=== PATIENT | male | born 1930 | race Caucasian/White ===

== ENCOUNTER 2016-12-10 11:44 | Observation (INO) | payer MEDICARE ==
[~2016-12-10] VITALS: Ht 182.9 cm; Wt 90.0 kg
[2016-12-10] VITALS (8 sets, daily range): BP systolic 161–247; BP diastolic 70–112; PULSE 81–91; RESP 18; TEMP 98–98.1; O2SAT 90–96
[~2016-12-10 11:44] MED LIST: ADAL60TA9 PO; ASPI81 PO; ATOR40TA49 PO; GABA300C3 PO; LISI-366 PO; SINE25100 PO; VITA200017 PO; WARF2.5T40 PO; WARF2TAB PO; Z.0.OXYGENDME NC
--- NOTE | 2016-12-10 12:16 | PD ---
HPI Chief Complaint: Respiratory Distress Time Seen by Provider: 12:00 Travel History International Travel<30 days: No Contact w/Intl Traveler<30days: No Traveled to known affect area: No History of Present Illness HPI 56-year-old male that presents to the ED for evaluation of shortness of breath with exertion as well as difficulty swallowing and chest pressure comes and goes. Patient has a chronic history of Parkinson's disease, previous PE, AAA repair as well as ACS. Per patient the symptoms especially with shortness of breath have been ongoing for the past year but they've been worsening for the past 2 months. Per patient even just walking to the bathroom causes him severe exertion. Per patient is also noted that he's been having some difficulty swallowing even his pills. Per patient he is able to do so but he feels like they get stuck. This appears to be ongoing for about the same amount of time but progressively again getting worse. She states that he's also been having this chest pressure that gets better when he rubs his chest. Per patient he comes and goes and is not constant. She is concerned that there is something else going on. He does have a known history of smoking. He follows with Dr. arizmendi for cardiology and he states that he did see his physician about 6 months ago but at the time the symptoms weren't as severe as they are now. Patient tells me that he used to be on oxygen when he had his pulmonary embolism 3 years ago. He takes no blood thinners. He states that the oxygen was weaned off from him in a couple of months afterwards. He states that he's been checking his O2 at home and his O2 is in the 80s unless he forces himself to breathe and take deep breaths. He denies any recent travel or injury. He denies any chest pain at this time. He does have some difficulty speaking secondary to shortness of breath. PFSH Past Medical History AAA: Yes (2011) Arthritis: No Asthma: No Autoimmune Disease: Yes (childhood) Anxiety: Yes (ONLY RECENTLY SITUATIONAL TENSION) Depression: No Heart Rhythm Problems: No Cancer: No Cardiac Catheterization: Yes (2 STENTS 2005) Cardiovascular Problems: Yes High Cholesterol: Yes Chest Pain: No Congestive Heart Failure: Yes COPD: No Cerebrovascular Accident: No Diabetes: No Diminished Hearing: No Endocrine: No GERD: No Glaucoma: No Genitourinary: No Headaches: No Hepatitis: No Hiatal Hernia: No Hypertension: Yes Immune Disorder: No Implanted Vascular Access Dvce: Yes Kidney Stones: No Musculoskeletal: No Neurologic: Yes (SPINAL STENOSIS) Parkinson's Disease: Yes (PARKINSON SYMPTOMS) Psychiatric: No Reproductive: Yes (ED) Respiratory: No Immunizations Current: No Myocardial Infarction: No Renal Failure: No Seizures: No Sleep Apnea: No Thyroid Disease: No Ulcer: No Past Surgical History Abdominal Aneurysm Repair: Yes (2010) AICD: No Appendectomy: Yes Body Medical Devices: BILAT EYE LENS IMPLANTS Cardiac Surgery: Yes (cabg X 2 ) Coronary Artery Bypass Graft: Yes (X2 VESSELS) Coronary Stent: Yes Eye Surgery: Yes (BILATERAL CATARACTS) Pacemaker: No Other Surgery: Yes (AAA IN 2011) Social History Alcohol Use: Yes (GLASS OF WINE PER DAY) Tobacco Use: Yes (CIGAR/DAY) Substance Use: No Allergies-Medications (Allergen,Severity, Reaction): Coded Allergies: clopidogrel (Unverified Allergy, Severe, HIVES,SWELLING THROAT, 12/10/16) penicillin G (Unverified Allergy, Intermediate, SOB/HIVES/ THROAT SWELLING , 12/10/16) pyridoxine (Unverified Allergy, Mild, ITCHING AND HIVES, 12/10/16) Uncoded Allergies: LEONARD CHERRIES (Allergy, Intermediate, SOB/HIVES, 10/05/10) Reported Meds & Prescriptions Reported Meds & Active Scripts Active Review of Systems Except as stated in HPI: all other systems reviewed are Neg Physical Exam Narrative GENERAL: SKIN: Warm and dry. HEAD: Atraumatic. Normocephalic. EYES: Pupils equal and round. No scleral icterus. No injection or drainage. ENT: No nasal bleeding or discharge. Mucous membranes pink and moist. Tongue is midline. No uvula deviation. Throat itself is clear. NECK: Trachea midline. No JVD. CARDIOVASCULAR: Regular rate and rhythm. No murmurs, S3, S4. RESPIRATORY: No accessory muscle use. Clear to auscultation. Breath sounds equal bilaterally. GASTROINTESTINAL: Abdomen soft, non-tender, nondistended. Hepatic and splenic margins not palpable. MUSCULOSKELETAL: Extremities without clubbing, cyanosis, or edema. No obvious deformities. Full range of motion of the upper and lower extremities bilaterally. 2+ pulses bilaterally. NEUROLOGICAL: Awake and alert and oriented x 4. No obvious cranial nerve deficits. Motor grossly within normal limits. Five out of 5 muscle strength in the arms and legs. Normal speech. PSYCHIATRIC: Appropriate mood and affect; insight and judgment normal. Data Data Last Documented VS Vital Signs Date Time Temp Pulse Resp B/P (MAP) Pulse Ox O2 Delivery O2 Flow Rate FiO2 12/10/16 12:20 18 95 Nasal Cannula 2.00 12/10/16 12:16 70 12/10/16 11:52 98.1 200/110 (140) Orders Orders Electrocardiogram (12/10/16 12:00) Complete Blood Count With Diff (12/10/16 12:00) Basic Metabolic Panel (Bmp) (12/10/16 12:00) Ckmb (Isoenzyme) Profile (12/10/16 12:00) Troponin I (12/10/16 12:00) B-Type Natriuretic Peptide (12/10/16 12:00) Prothrombin Time / Inr (Pt) (12/10/16 12:00) Act Partial Throm Time (Ptt) (12/10/16 12:00) Magnesium (Mg) (12/10/16 12:00) Thyroid Stimulating Hormone (12/10/16 12:00) Chest, Single Ap (12/10/16 12:00) Iv Access Insert/Monitor (12/10/16 12:00) Ecg Monitoring (12/10/16 12:00) Oximetry (12/10/16 12:00) Ct Pulmonary Angiogram (12/10/16 ) Iohexol 350 Inj (Omnipaque 350 Inj) (12/10/16 13:58) Methylprednisolone So Succ Inj (Solumedr (12/10/16 14:45) Albuterol Neb (Albuterol Neb) (12/10/16 14:45) Admit Order (Ed Use Only) (12/10/16 14:51) Labs Laboratory Tests Test 12/10/16 12:20 White Blood Count 11.6 TH/MM3 Red Blood Count 6.22 MIL/MM3 Hemoglobin 16.5 GM/DL Hematocrit 52.0 % Mean Corpuscular Volume 83.7 FL Mean Corpuscular Hemoglobin 26.6 PG Mean Corpuscular Hemoglobin Concent 31.8 % Red Cell Distribution Width 15.3 % Platelet Count 220 TH/MM3 Mean Platelet Volume 8.1 FL Neutrophils (%) (Auto) 76.1 % Lymphocytes (%) (Auto) 14.9 % Monocytes (%) (Auto) 7.5 % Eosinophils (%) (Auto) 0.8 % Basophils (%) (Auto) 0.7 % Neutrophils # (Auto) 8.9 TH/MM3 Lymphocytes # (Auto) 1.7 TH/MM3 Monocytes # (Auto) 0.9 TH/MM3 Eosinophils # (Auto) 0.1 TH/MM3 Basophils # (Auto) 0.1 TH/MM3 CBC Comment DIFF FINAL Differential Comment Prothrombin Time 11.5 SEC Prothromb Time International Ratio 1.0 RATIO Activated Partial Thromboplast Time 29.2 SEC Blood Urea Nitrogen 16 MG/DL Creatinine 0.93 MG/DL Random Glucose 82 MG/DL Calcium Level 9.2 MG/DL Magnesium Level 2.2 MG/DL Sodium Level 143 MEQ/L Potassium Level 4.0 MEQ/L Chloride Level 106 MEQ/L Carbon Dioxide Level 27.5 MEQ/L Anion Gap 10 MEQ/L Estimat Glomerular Filtration Rate 77 ML/MIN Total Creatine Kinase 58 U/L Troponin I 0.02 NG/ML B-Type Natriuretic Peptide 136 PG/ML Thyroid Stimulating Hormone 3rd Gen 0.794 uIU/ML MDM Medical Decision Making Medical Screen Exam Complete: Yes Emergency Medical Condition: Yes Medical Record Reviewed: Yes Interpretation(s) Last Impressions Chest X-Ray 12/10/16 1200 Signed Impressions: Service Date/Time: Saturday, December 10, 2016 12:20 - CONCLUSION: Pulmonary venous congestion. Watson Farias MD CT Angiography 12/10/16 0000 Signed Impressions: Service Date/Time: Saturday, December 10, 2016 13:46 - CONCLUSION: 1. No evidence of pulmonary embolism. 2. 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 No significant changes. Watson Farias MD CBC & BMP Diagram 12/10/16 12:20 Calcium Level 9.2, Magnesium Level 2.2 troponin and CKMB negative EKG shows sinus rhythm with no sign of acute ischemia or arrhythmia. Read by me and attending. Differential Diagnosis Shortness of breath versus pulmonary embolism versus coronary artery disease versus arrhythmia versus hypoxia versus cancer Narrative Course 86-year-old male that presents to the ED for evaluation of shortness of breath with exertion. Patient was properly examined and was found to have signs and symptoms of unclear etiology. Patient appears to have chronic symptoms that appear to be worsening. Patient does have multiple comorbidities for multiple severe illness. Recommendation at this time is for labs and imaging. Patient has a history of PEs and takes no blood thinners and aspirin. We'll do CT pulmonary diagram because of patient's hypoxia. Patient without oxygen sats in the 88/89 but goes lower if he ambulates. With oxygen his sats in the early 90s. Labs and imaging showed no sign of acute disease other than COPD findings on the CT pulmonary and urine. Patient is not aware he has COPD. I had my attending Dr. You evaluated the patient who recommended we treat patient with 2 nebs as well as steroids. Patient also complains of some trouble swallowing and she is concerned that patient could be having some aspiration pneumonitis causing some of the symptoms. She recommends the patient be admitted for further evaluation as patient is hypoxic without oxygen. [facility] doctor was contacted. Dr Fields agrees to obs admit. Diagnosis Primary Impression: Hypoxia Additional Impressions: COPD (chronic obstructive pulmonary disease) Qualified Codes: J44.9 - Chronic obstructive pulmonary disease, unspecified Dysphagia Qualified Codes: R13.10 - Dysphagia, unspecified Chest pain in adult Admitting Information Admitting Physician Requests: Delgado Marroquin Dec 10, 2016 12:16
[2016-12-10 12:33] LABS: AUTOMATED NEUTROPHIL # 8.9 TH/MM3 (1.8-7.7); BASOPHIL # 0.1 TH/MM3 (0-0.2); BASOPHIL % 0.7 % (0.0-2.0); EOSINOPHIL # 0.1 TH/MM3 (0-0.4); EOSINOPHIL % 0.8 % (0.0-4.0); HEMO FLAGS DIFF FINAL; LYMPH % 14.9 % (9.0-44.0); LYMPHOCYTE # 1.7 TH/MM3 (1.0-4.8); MEAN CELL VOLUME 83.7 FL (80.0-100.0); MEAN CORPUSCULAR HEMOGLOBIN 26.6 PG (27.0-34.0); MEAN CORPUSCULAR HGB CONC 31.8 % (32.0-36.0); MONO % 7.5 % (0.0-8.0); NEUT % 76.1 % (16.0-70.0); PLATELET COUNT 220 TH/MM3 (150-450); RED BLOOD COUNT 6.22 MIL/MM3 (4.50-5.90); RED CELL DISTRIBUTION WIDTH 15.3 % (11.6-17.2); WHITE BLOOD COUNT 11.6 TH/MM3 (4.0-11.0)
--- NOTE | 2016-12-10 12:33 | RADRPT ---
EXAM DATE/TIME: 12/10/2016 12:20 [facility] COMPARISON: CHEST SINGLE AP, October 03, 2013, 8:20. INDICATIONS : Shortness of breath. MEDICAL HISTORY : Congestive heart failure. Hypertension SURGICAL HISTORY : CABG. Appendectomy. CABG. ENCOUNTER: Initial ACUITY: 3 days PAIN SCORE: 0/10 LOCATION: Bilateral chest FINDINGS: A single view of the chest demonstrates the lungs to be symmetrically aerated without evidence of mas s, infiltrate or effusion. Some prominence of the pulmonary vasculature suggestive of pulmonary venou s congestion. The cardiomediastinal contours are stable compared to the prior study. There is evidenc e of previous cardiothoracic surgery.. Osseous structures are intact and stable. CONCLUSION: Pulmonary venous congestion. Watson Farias MD on December 10, 2016 at 12:31 Board Certified Radiologist. This report was verified electronically.
[2016-12-10 12:41] LABS: APTT (PATIENT) 29.2 SEC (24.3-30.1); PROTHROMBIN TIME - PATIENT 11.5 SEC (9.8-11.6)
[2016-12-10 12:52] LABS: BICARBONATE 27.5 MEQ/L (21.0-32.0); MAGNESIUM 2.2 MG/DL (1.5-2.5)
[2016-12-10] MEDS ORDERED: IOHEXOL 350 MG/ML 10 ML VIAL (for RAD DIAG) IVCONTRAST ONE (13:58)
--- NOTE | 2016-12-10 14:09 | RADRPT ---
EXAM DATE/TIME: 12/10/2016 13:46 [facility] COMPARISON: CT PULMONARY ANGIOGRAM, September 29, 2013, 16:17. INDICATIONS : Embolism,Shortness of breath,chest pain, fatigue. IV CONTRAST: 70 cc Omnipaque 350 (iohexol) IV RADIATION DOSE: 12.69 CTDIvol (mGy) MEDICAL HISTORY : Cardiovascular disease. Parkinsons. Congestive heart failure.Hypertension. Auto immune. SURGICAL HISTORY : Appendectomy. AAA ENCOUNTER: Initial ACUITY: 1 yr PAIN SCALE: 6/10 LOCATION: chest TECHNIQUE: Volumetric scanning of the chest was performed using a pulmonary embolism protocol MIP images were re constructed. Using automated exposure control and adjustment of the mA and/or kV according to patien t size, radiation dose was kept as low as reasonably achievable to obtain optimal diagnostic quality images. DICOM format image data is available electronically for review and comparison. Follow-up recommendations for detected pulmonary nodules are based at a minimum on nodule size and pa tient risk factors according to Fleischner Society Guidelines. FINDINGS: PULMONARY ARTERIES: No filling defects are seen in the pulmonary arteries through the segmental level. LUNGS: There is no consolidation or pneumothorax . No concerning pulmonary nodule is visualized. There is c entral lobar emphysema and chronic bilateral interstitial lung disease. These findings are not signif icantly changed compared to the prior exam. No acute pulmonary infiltrates. PLEURAE: There is no pleural thickening or pleural effusion. MEDIASTINUM: There is good visualization of the great vessels of the middle mediastinum. No evidence of mediastin al or hilar adenopathy/mass. MUSCULOSKELETAL: Within normal limits for patient age. MISCELLANEOUS: The visualized upper abdominal organs demonstrate no acute abnormality. CONCLUSION: 1. No evidence of pulmonary embolism. 2. 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 No significant changes. Watson Farias MD on December 10, 2016 at 14:05 Board Certified Radiologist. This report was verified electronically.
[2016-12-10] MEDS: RESP: ALBUTEROL 2.5 MG/3 ML NEB (SCH) INH (14:39)
[2016-12-10] MEDS ORDERED: methylPREDNISolone SOD SUCC 125 MG/2 ML VIAL IVP ONE (14:45)
[2016-12-10] MEDS ORDERED: ATOR40TA16 PO (15:41)
[2016-12-10] MEDS ORDERED: GABA300C5 PO (15:41)
[2016-12-10] MEDS ORDERED: ASPI81CH37 CHEW (15:41)
[2016-12-10] MEDS ORDERED: NIFE30TA61 PO (15:41)
[2016-12-10] MEDS ORDERED: LISI-515 PO (15:41)
[2016-12-10] MEDS ORDERED: VITA2000 PO (15:41)
[2016-12-10] MEDS ORDERED: SINE25TA PO (15:41)
[2016-12-10] MEDS ORDERED: NIFEdipine 10 MG CAP PO ONE (16:00)
[2016-12-10] MEDS ORDERED: LISINOPRIL 20 MG TAB PO ONE (16:00)
--- NOTE | 2016-12-10 16:12 | HHI.HP ---
HPI [facility] Primary Care Physician Unknown Admission Diagnosis COPD exacerbation, dysphagia Chief Complaint: sob/difficulty swallowing Travel History International Travel<30 Days: No Contact w/Intl Traveler <30 Da: No Traveled to Known Affected Are: No History of Present Illness Pt is 86 yo with copd/ILD, hx AAA repair, hx PE, cad who presents with progressive sob and dysphagia. Pt says he has been getting more sob with exertion for at least a year. Says he is on no maintenance inhalers for copd. Now getting really bad so he came here. Also more trouble with liquids getting stuck in his throat over past 2 months. BP significantly elevated in ED. Pt getting rx for copd. No PE on CTA. Review of Systems Other sob dysphagia Past Family Social History Past Medical History CAD. CABG X 2 1994 STENT X 2 [facility] 2012...1 OF 2 GRAFTS PATENT EMPHESEMA BILATERAL PE'S IN 2013 SPINAL STENOSIS. PARKINSONS. APPENDICITIS S/P APPE basal cell left face s/p bx hx AAA s/p repair HTN Reported Medications Vitamin D3 (Cholecalciferol) 2,000 Unit Cap 2,000 Units PO DAILY Aspirin Low Dose (Aspirin) 81 Mg Chew 81 Mg CHEW DAILY Gabapentin 300 Mg Cap 300 Mg PO TID Sinemet (Carbidopa-Levodopa) 25-100 Mg Tab 1 Tab PO QID Nifedipine ER 24 HR (Nifedipine) 30 Mg Tab 30 Mg PO DAILY Atorvastatin (Atorvastatin Calcium) 40 Mg Tab 40 Mg PO HS Lisinopril 20 Mg Tab 20 Mg PO BID Allergies: Coded Allergies: clopidogrel (Unverified Allergy, Severe, HIVES,SWELLING THROAT, 12/10/16) penicillin G (Unverified Allergy, Intermediate, SOB/HIVES/ THROAT SWELLING , 12/10/16) pyridoxine (Unverified Allergy, Mild, ITCHING AND HIVES, 12/10/16) Uncoded Allergies: LEONARD CHERRIES (Allergy, Intermediate, SOB/HIVES, 10/05/10) Family History NC Social History QUIT TOB 1978 AFTER 1PPD X 20YRS OCC ETOH. WINE Physical Exam Vital Signs NAD SLOW MENTATION HEART IRREG LUNG FEW BASILAR CRACKLES/WHEEZE ABD S/NT EXT NO EDEMA Vital Signs Date Time Temp Pulse Resp B/P (MAP) Pulse Ox O2 Delivery O2 Flow Rate FiO2 12/10/16 15:59 87 18 247/112 (157) 95 Nasal Cannula 2.00 12/10/16 12:20 18 95 Nasal Cannula 2.00 12/10/16 12:16 70 18 92 Room Air 12/10/16 11:52 98.1 86 18 200/110 (140) 90 Laboratory Laboratory Tests Test 12/10/16 12:20 White Blood Count 11.6 Red Blood Count 6.22 Hemoglobin 16.5 Hematocrit 52.0 Mean Corpuscular Volume 83.7 Mean Corpuscular Hemoglobin 26.6 Mean Corpuscular Hemoglobin Concent 31.8 Red Cell Distribution Width 15.3 Platelet Count 220 Mean Platelet Volume 8.1 Neutrophils (%) (Auto) 76.1 Lymphocytes (%) (Auto) 14.9 Monocytes (%) (Auto) 7.5 Eosinophils (%) (Auto) 0.8 Basophils (%) (Auto) 0.7 Neutrophils # (Auto) 8.9 Lymphocytes # (Auto) 1.7 Monocytes # (Auto) 0.9 Eosinophils # (Auto) 0.1 Basophils # (Auto) 0.1 CBC Comment DIFF FINAL Differential Comment Prothrombin Time 11.5 Prothromb Time International Ratio 1.0 Activated Partial Thromboplast Time 29.2 Blood Urea Nitrogen 16 Creatinine 0.93 Random Glucose 82 Calcium Level 9.2 Magnesium Level 2.2 Sodium Level 143 Potassium Level 4.0 Chloride Level 106 Carbon Dioxide Level 27.5 Anion Gap 10 Estimat Glomerular Filtration Rate 77 Total Creatine Kinase 58 Troponin I 0.02 B-Type Natriuretic Peptide 136 Thyroid Stimulating Hormone 3rd Gen 0.794 Result Diagram: 12/10/16 1220 12/10/16 1220 Caprini VTE Risk Assessment Caprini VTE Risk Assessment: Mod/High Risk (score >= 2) Caprini Risk Assessment Model Point Value = 1 Point Value = 2 Point Value = 3 Point Value = 5 Age 41-60 Minor surgery BMI > 25 kg/m2 Swollen legs Varicose veins or History of unexplained or recurrent spontaneous Oral contraceptives or hormone replacement Sepsis (< 1 month) Serious lung disease, including pneumonia (< 1 month) Abnormal pulmonary function Acute myocardial infarction Congestive heart failure (< 1 month) History of inflammatory bowel disease Medical patient at bed rest Age 61-74 Arthroscopic surgery Major open surgery (> 45 min) Laparoscopic surgery (> 45 min) Malignancy Confined to bed (> 72 hours) Immobilizing plaster cast Central venous access Age >= 75 History of VTE Family history of VTE Factor V Leiden Prothrombin [id number] Lupus anticoagulant Anticardiolipin antibodies Elevated serum homocysteine Heparin-induced thrombocytopenia Other congenital or acquired thrombophilia Stroke (< 1 month) Elective arthroplasty Hip, pelvis, or leg fracture Acute spinal cord injury (< 1 month) Prophylaxis Regimen Total Risk Factor Score Risk Level Prophylaxis Regimen 0-1 Low Early ambulation 2 Moderate Order ONE of the following: *Sequential Compression Device (SCD) *Heparin 5000 units SQ BID 3-4 Higher Order ONE of the following medications: *Heparin 5000 units SQ TID *Enoxaparin/Lovenox 40 mg SQ daily (WT < 150 kg, CrCl > 30 mL/min) *Enoxaparin/Lovenox 30 mg SQ daily (WT < 150 kg, CrCl > 10-29 mL/min) *Enoxaparin/Lovenox 30 mg SQ BID (WT < 150 kg, CrCl > 30 mL/min) AND/OR *Sequential Compression Device (SCD) 5 or more Highest Order ONE of the following medications: *Heparin 5000 units SQ TID (Preferred with Epidurals) *Enoxaparin/Lovenox 40 mg SQ daily (WT < 150 kg, CrCl > 30 mL/min) *Enoxaparin/Lovenox 30 mg SQ daily (WT < 150 kg, CrCl > 10-29 mL/min) *Enoxaparin/Lovenox 30 mg SQ BID (WT < 150 kg, CrCl > 30 mL/min) AND *Sequential Compression Device (SCD) Assessment and Plan Problem List: (1) COPD (chronic obstructive pulmonary disease) ICD Codes: J44.9 - Chronic obstructive pulmonary disease, unspecified Status: Acute Plan: Pt is 86 yo with copd/ILD, cad, hx kristi PE's Presents with progressive sob with exertion and c/o dysphagia Admit for copd exacerbation. r/o esophageal dysmotility/obstruction No PE on CTA today. just emphesema/ILD.stable. Pt was hypoxic on admission today cont nebs schecduled and solumedrol will need maintenance inhalers on d/c and will d/o walk test for home o2 barium swallow. speech therapy eval. dvt prophylaxis PT eval cont home meds for other medical conditions. bp elevated. home meds plus prn control. telemetry. (2) Dysphagia ICD Codes: R13.10 - Dysphagia, unspecified Status: Acute Plan: ABOVE (3) Hypoxia ICD Codes: R09.02 - Hypoxia Status: Acute Plan: ABOVE (4) CAD (coronary artery disease) ICD Codes: I25.10 - CAD (coronary artery disease) Status: Chronic (5) History of atrial fibrillation ICD Codes: Z86.79 - History of atrial fibrillation Status: Chronic (6) Spinal stenosis ICD Codes: M48.00 - Spinal stenosis Status: Chronic (7) Pulmonary emboli ICD Codes: I26.99 - Pulmonary emboli Status: Resolved Problem Qualifiers (1) COPD (chronic obstructive pulmonary disease): Qualified Codes: J44.9 - Chronic obstructive pulmonary disease, unspecified (2) Dysphagia: Qualified Codes: R13.10 - Dysphagia, unspecified Raymundo Paniagua MD Dec 10, 2016 16:12
--- NOTE | 2016-12-10 16:30 | PD ---
Data Data Last Documented VS Vital Signs Date Time Temp Pulse Resp B/P (MAP) Pulse Ox O2 Delivery O2 Flow Rate FiO2 12/10/16 12:20 18 95 Nasal Cannula 2.00 12/10/16 12:16 70 12/10/16 11:52 98.1 200/110 (140) Orders Orders Electrocardiogram (12/10/16 12:00) Complete Blood Count With Diff (12/10/16 12:00) Basic Metabolic Panel (Bmp) (12/10/16 12:00) Ckmb (Isoenzyme) Profile (12/10/16 12:00) Troponin I (12/10/16 12:00) B-Type Natriuretic Peptide (12/10/16 12:00) Prothrombin Time / Inr (Pt) (12/10/16 12:00) Act Partial Throm Time (Ptt) (12/10/16 12:00) Magnesium (Mg) (12/10/16 12:00) Thyroid Stimulating Hormone (12/10/16 12:00) Chest, Single Ap (12/10/16 12:00) Iv Access Insert/Monitor (12/10/16 12:00) Ecg Monitoring (12/10/16 12:00) Oximetry (12/10/16 12:00) Ct Pulmonary Angiogram (12/10/16 ) Iohexol 350 Inj (Omnipaque 350 Inj) (12/10/16 13:58) Methylprednisolone So Succ Inj (Solumedr (12/10/16 14:45) Albuterol Neb (Albuterol Neb) (12/10/16 14:45) Admit Order (Ed Use Only) (12/10/16 14:51) Labs Laboratory Tests Test 12/10/16 12:20 White Blood Count 11.6 TH/MM3 Red Blood Count 6.22 MIL/MM3 Hemoglobin 16.5 GM/DL Hematocrit 52.0 % Mean Corpuscular Volume 83.7 FL Mean Corpuscular Hemoglobin 26.6 PG Mean Corpuscular Hemoglobin Concent 31.8 % Red Cell Distribution Width 15.3 % Platelet Count 220 TH/MM3 Mean Platelet Volume 8.1 FL Neutrophils (%) (Auto) 76.1 % Lymphocytes (%) (Auto) 14.9 % Monocytes (%) (Auto) 7.5 % Eosinophils (%) (Auto) 0.8 % Basophils (%) (Auto) 0.7 % Neutrophils # (Auto) 8.9 TH/MM3 Lymphocytes # (Auto) 1.7 TH/MM3 Monocytes # (Auto) 0.9 TH/MM3 Eosinophils # (Auto) 0.1 TH/MM3 Basophils # (Auto) 0.1 TH/MM3 CBC Comment DIFF FINAL Differential Comment Prothrombin Time 11.5 SEC Prothromb Time International Ratio 1.0 RATIO Activated Partial Thromboplast Time 29.2 SEC Blood Urea Nitrogen 16 MG/DL Creatinine 0.93 MG/DL Random Glucose 82 MG/DL Calcium Level 9.2 MG/DL Magnesium Level 2.2 MG/DL Sodium Level 143 MEQ/L Potassium Level 4.0 MEQ/L Chloride Level 106 MEQ/L Carbon Dioxide Level 27.5 MEQ/L Anion Gap 10 MEQ/L Estimat Glomerular Filtration Rate 77 ML/MIN Total Creatine Kinase 58 U/L Troponin I 0.02 NG/ML B-Type Natriuretic Peptide 136 PG/ML Thyroid Stimulating Hormone 3rd Gen 0.794 uIU/ML MDM Supervised Visit with SHERRIE: Yes Narrative Course The history, exam, and medical decision-making in the associated midlevel provider note were completed with my assistance. I reviewed and agree with the findings presented. I attest that I had a [id number] encounter with the patient on the same day, and personally performed and documented my assessment and findings in the medical record. *My assessment and Findings: This is an 86-year-old male who presents to the emergency department with shortness of breath and low oxygen saturation. History of Parkinson's disease and a [id number] smoking history. Labs were obtained which were reassuring. He has an indeterminate BNP. Chest x-ray demonstrates some possible pulmonary edema. CT of the chest demonstrates COPD. On exam he has some Rales in the bases. He appears very dry side hesitant to diurese him. We will empirically given some bronchodilators and steroids but when talking the family they say that he's been having trouble swallowing and I suspect he may some component of aspiration contribute to his symptoms. He'll be admitted as he is hypoxic at 85% with ambulation. Diagnosis Primary Impression: Hypoxia Additional Impressions: COPD (chronic obstructive pulmonary disease) Qualified Codes: J44.9 - Chronic obstructive pulmonary disease, unspecified Dysphagia Qualified Codes: R13.10 - Dysphagia, unspecified Chest pain [facility] adult [facility] ChildrenJaclyn blake MD Dec 10, 2016 16:30
[2016-12-10] MEDS: methylPREDNISolone SOD SUCC 125 MG/2 ML VIAL IV PUSH SCH (17:48)
[2016-12-10] MEDS: GABAPENTIN 300 MG CAP PO SCH (17:49)
[2016-12-10] MEDS: RESP: ALBUTEROL 2.5 MG/IPRATROPIUM 0.5 MG NEB (SCH) NEB (21:34)
[2016-12-10] MEDS: LISINOPRIL 20 MG TAB PO SCH (22:46)
[2016-12-10] MEDS: CARBIDOPA/LEVODOPA 25 MG/100 MG TAB PO SCH (22:46)
[2016-12-10] MEDS: ATORVASTATIN 40 MG TAB PO SCH (22:46)
[2016-12-11] VITALS (12 sets, daily range): BP systolic 118–209; BP diastolic 59–95; PULSE 70–89; RESP 17–20; TEMP 97.8–98.5; O2SAT 89–96
[2016-12-11] MEDS: methylPREDNISolone SOD SUCC 125 MG/2 ML VIAL IV PUSH SCH ×4 (00:54→17:56)
[2016-12-11] MEDS: CARBIDOPA/LEVODOPA 25 MG/100 MG TAB PO SCH ×3 (05:27→21:33)
[2016-12-11] MEDS: RESP: ALBUTEROL 2.5 MG/IPRATROPIUM 0.5 MG NEB (SCH) NEB ×4 (07:42→20:33)
[2016-12-11] MEDS: ENALAPRILAT 1.25 MG/ML VIAL IV PUSH PRN ×2 (07:49→14:51)
[2016-12-11] MEDS ORDERED: NIFEdipine 30 MG SUSTAINED RELEASE TAB PO SCH (09:00)
[2016-12-11] MEDS: ASPIRIN 81 MG CHEW TAB CHEW SCH (09:04)
[2016-12-11] MEDS: CHOLECALCIFEROL (VIT D3) 1000 UNIT TAB PO SCH (09:04)
[2016-12-11] MEDS: GABAPENTIN 300 MG CAP PO SCH ×3 (09:04→17:55)
[2016-12-11] MEDS: LISINOPRIL 20 MG TAB PO SCH ×2 (09:06→21:00)
--- NOTE | 2016-12-11 09:31 | HHI.PR ---
Subjective Remarks unable to do barium swallow. says he couldn't stand and he couldn't lye on the table. Objective Vitals heart reg lung few wheezes abd s/nt ext no edema Vital Signs Date Time Temp Pulse Resp B/P (MAP) Pulse Ox O2 Delivery O2 Flow Rate FiO2 12/11/16 08:52 206/88 (127) 12/11/16 07:45 94 Nasal Cannula 2.00 12/11/16 07:26 97.8 79 18 209/95 (133) 95 12/11/16 03:27 97.9 70 18 157/78 (104) 90 12/11/16 00:09 97.9 71 18 154/72 (99) 90 12/10/16 21:36 92 Nasal Cannula 3.00 12/10/16 20:00 89 12/10/16 19:41 98.0 82 18 161/70 (100) 95 12/10/16 17:57 12/10/16 17:04 91 18 173/80 (111) 96 Nasal Cannula 2.00 12/10/16 16:38 81 18 184/80 (114) 96 Nasal Cannula 2.00 12/10/16 15:59 87 18 247/112 (157) 95 Nasal Cannula 2.00 12/10/16 12:20 18 95 Nasal Cannula 2.00 12/10/16 12:16 70 18 92 Room Air 12/10/16 11:52 98.1 86 18 200/110 (140) 90 Result Diagram: 12/10/16 1220 12/10/16 1220 A/P Problem List: (1) COPD (chronic obstructive pulmonary disease) ICD Codes: J44.9 - Chronic obstructive pulmonary disease, unspecified Status: Acute Plan: Pt is 86 yo with copd/ILD, cad, hx kristi PE's Presents with progressive sob with exertion and c/o dysphagia Admit for copd exacerbation. r/o esophageal dysmotility/obstruction No PE on CTA . just emphesema/ILD.stable. Pt was hypoxic on admission today uncontrolled htn deconditioned cont nebs scheduled and solumedrol will need maintenance inhalers on d/c and will d/o walk test for home o2 unable to do barium swallow. speech therapy eval. dvt prophylaxis PT eval cont home meds for other medical conditions. bp elevated. titrate up the ccb today CM consult. will decide hhc/pt vs snf for tomorrow. (2) Dysphagia ICD Codes: R13.10 - Dysphagia, unspecified Status: Acute Plan: ABOVE (3) Hypoxia ICD Codes: R09.02 - Hypoxia Status: Acute Plan: ABOVE (4) CAD (coronary artery disease) ICD Codes: I25.10 - CAD (coronary artery disease) Status: Chronic (5) History of atrial fibrillation ICD Codes: Z86.79 - History of atrial fibrillation Status: Chronic (6) Spinal stenosis ICD Codes: M48.00 - Spinal stenosis Status: Chronic (7) Pulmonary emboli ICD Codes: I26.99 - Pulmonary emboli Status: Resolved Problem Qualifiers (1) COPD (chronic obstructive pulmonary disease): Qualified Codes: J44.9 - Chronic obstructive pulmonary disease, unspecified (2) Dysphagia: Qualified Codes: R13.10 - Dysphagia, unspecified Raymundo Paniagua MD Dec 11, 2016 09:31
[2016-12-11] MEDS ORDERED: cloNIDine HCL 0.1 MG TAB PO PRN (15:15)
[2016-12-11] MEDS ORDERED: ACETAMINOPHEN 325 MG TAB PO PRN (15:15)
--- NOTE | 2016-12-11 15:56 | EKG ---
Date Performed: 12/10/2016 Time Performed: 12:23:49 PTAGE: 86 years EKG: Sinus rhythm with PACs MODERATE VOLTAGE CRITERIA FOR LVH, CONSIDER NORMAL VARIANT ABNORMAL RHYTHM ECG Compared to PREVIOUS TRACING , previously seen ST and T-wave changes have improved. PREVIOUS TRACIN09/30/2013 01.33 DOCTOR: Sumanth Vieira Interpretating Date/Time 12/11/2016 15:54:42
[2016-12-11] MEDS: NIFEdipine 30 MG SUSTAINED RELEASE TAB PO SCH (21:00)
[2016-12-11] MEDS: ATORVASTATIN 40 MG TAB PO SCH (21:00)
[2016-12-12 00:06] VITALS: BP 102/56; PULSE 69; RESP 16; TEMP 98; O2SAT 90
[2016-12-12 03:22] VITALS: BP 111/55; PULSE 71; RESP 17; TEMP 97.9; O2SAT 90
[2016-12-12] MEDS: CARBIDOPA/LEVODOPA 25 MG/100 MG TAB PO SCH (06:00)
[2016-12-12] MEDS: methylPREDNISolone SOD SUCC 125 MG/2 ML VIAL IV PUSH SCH ×3 (06:08→12:00)
[2016-12-12 07:14] VITALS: BP 134/66; PULSE 80; RESP 20; TEMP 97.6; O2SAT 94
[2016-12-12] MEDS: RESP: ALBUTEROL 2.5 MG/IPRATROPIUM 0.5 MG NEB (SCH) NEB ×2 (07:47→11:37)
[2016-12-12 07:49] VITALS: O2SAT 92
[2016-12-12] MEDS: NIFEdipine 30 MG SUSTAINED RELEASE TAB PO SCH (08:34)
[2016-12-12] MEDS: GABAPENTIN 300 MG CAP PO SCH (08:34)
[2016-12-12] MEDS: CHOLECALCIFEROL (VIT D3) 1000 UNIT TAB PO SCH (08:35)
[2016-12-12] MEDS: LISINOPRIL 20 MG TAB PO SCH (08:36)
[2016-12-12] MEDS: ASPIRIN 81 MG CHEW TAB CHEW SCH (08:36)
--- NOTE | 2016-12-12 09:51 | HHI.PR ---
Subjective Remarks Pt reports that his breathing is better today He is down to 1L of supplemental O2 He reports having one loose BM this morning. He states that he has issues with this at home occasionally and takes Imodium when this happens Objective Vitals Vital Signs Date Time Temp Pulse Resp B/P (MAP) Pulse Ox O2 Delivery O2 Flow Rate FiO2 12/12/16 07:49 92 Nasal Cannula 2.00 12/12/16 07:14 97.6 80 20 134/66 (88) 94 12/12/16 03:22 97.9 71 17 111/55 (73) 90 12/12/16 00:06 98.0 69 16 102/56 (71) 90 12/11/16 20:30 92 Nasal Cannula 2.00 12/11/16 19:03 97.9 80 17 118/59 (78) 89 12/11/16 16:44 98.5 85 20 144/65 (91) 96 12/11/16 15:31 86 188/82 (117) 12/11/16 14:44 89 207/91 (129) 180/84 (116) 12/11/16 11:28 98.0 81 20 174/79 (110) 93 12/11/16 09:48 171/84 (113) Result Diagram: 12/10/16 1220 12/10/16 1220 Other Results Laboratory Tests Test 12/10/16 12:20 White Blood Count 11.6 TH/MM3 Red Blood Count 6.22 MIL/MM3 Hemoglobin 16.5 GM/DL Hematocrit 52.0 % Mean Corpuscular Volume 83.7 FL Mean Corpuscular Hemoglobin 26.6 PG Mean Corpuscular Hemoglobin Concent 31.8 % Red Cell Distribution Width 15.3 % Platelet Count 220 TH/MM3 Mean Platelet Volume 8.1 FL Neutrophils (%) (Auto) 76.1 % Lymphocytes (%) (Auto) 14.9 % Monocytes (%) (Auto) 7.5 % Eosinophils (%) (Auto) 0.8 % Basophils (%) (Auto) 0.7 % Neutrophils # (Auto) 8.9 TH/MM3 Lymphocytes # (Auto) 1.7 TH/MM3 Monocytes # (Auto) 0.9 TH/MM3 Eosinophils # (Auto) 0.1 TH/MM3 Basophils # (Auto) 0.1 TH/MM3 CBC Comment DIFF FINAL Differential Comment Prothrombin Time 11.5 SEC Prothromb Time International Ratio 1.0 RATIO Activated Partial Thromboplast Time 29.2 SEC Blood Urea Nitrogen 16 MG/DL Creatinine 0.93 MG/DL Random Glucose 82 MG/DL Calcium Level 9.2 MG/DL Magnesium Level 2.2 MG/DL Sodium Level 143 MEQ/L Potassium Level 4.0 MEQ/L Chloride Level 106 MEQ/L Carbon Dioxide Level 27.5 MEQ/L Anion Gap 10 MEQ/L Estimat Glomerular Filtration Rate 77 ML/MIN Total Creatine Kinase 58 U/L Troponin I 0.02 NG/ML B-Type Natriuretic Peptide 136 PG/ML Thyroid Stimulating Hormone 3rd Gen 0.794 uIU/ML Imaging Last Impressions Chest X-Ray 12/10/16 1200 Signed Impressions: Service Date/Time: Saturday, December 10, 2016 12:20 - CONCLUSION: Pulmonary venous congestion. Watson Farias MD CT Angiography 12/10/16 0000 Signed Impressions: Service Date/Time: Saturday, December 10, 2016 13:46 - CONCLUSION: 1. No evidence of pulmonary embolism. 2. 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 No significant changes. Watson Farias MD Objective Remarks General: NAD, AAOx3 Chest: CTA Cardiac: Regular Abd: +BS, soft ND/NT Ext: No edema A/P Problem List: (1) COPD (chronic obstructive pulmonary disease) ICD Codes: J44.9 - Chronic obstructive pulmonary disease, unspecified Status: Acute Plan: - Pt is 86 yo male with COPD/ILD, CAD, hx kristi PE's - He presented with progressive SOB with exertion and c/o dysphagia. Pt was noted to be hypoxic at admission. - He was admitted for COPD exacerbation and to r/o esophageal dysmotility/ obstruction - CTA (12/10) Negative for PE but noted emphysema/ILD, stable. - Pt with noted uncontrolled HTN at admission as well. - Pt is on Solu-medrol 60mg Q6H and scheduled Duonebs Q4H WA - Pt does not want to have a walk test in the hospital for home O2. He is down to 1L of O2 today. We will see if he can be weaned off the O2 today - PT has recommended HHC/PT upon discharge which will be arranged along with a home nebulizer. - Pt insists on going home today - Pt will need maintenance inhalers on d/c, we had planned to start Symbicort or Advair but I called [facility] pharmacy and both medications will cost him $80.00 so he declines these upon discharge and wants to followup with Dr. Peña regarding this. - We will have him continue Nebulizer treatments Q4H for the next 3 days, then can be used as needed - He is to complete a Prednisone Taper, 20mg BID x 3 days --> 20mg daily x 3 days --> 10mg daily x 3 days --> stop - He will need to followup with his PCP. Dr. Peña in the next week for re-evaluation. (2) HTN (hypertension), benign ICD Codes: I10 - Essential (primary) hypertension Status: Chronic Plan: - Pts BP was quite elevated and CCB was titrated up to 30mg BID - BP more stable today - Clonidine PRN (3) Dysphagia ICD Codes: R13.10 - Dysphagia, unspecified Status: Acute Plan: - Pt was unable to do the barium swallow but was seen by ST and recommended for regular diet with not s/s of aspiration - If dysphagia persists he may need GI evaluation for EGD as an outpt (4) Hypoxia ICD Codes: R09.02 - Hypoxia Status: Acute Plan: - As above (5) CAD (coronary artery disease) ICD Codes: I25.10 - CAD (coronary artery disease) Status: Chronic (6) History of atrial fibrillation ICD Codes: Z86.79 - History of atrial fibrillation Status: Chronic (7) Spinal stenosis ICD Codes: M48.00 - Spinal stenosis Status: Chronic (8) Pulmonary emboli ICD Codes: I26.99 - Pulmonary emboli Status: Resolved Assessment and Plan Patient examined. Assessment and plan formulated with Shannan Sal PA-C. I agree with the above. Problem Qualifiers (1) COPD (chronic obstructive pulmonary disease): Qualified Codes: J44.9 - Chronic obstructive pulmonary disease, unspecified (2) Dysphagia: Qualified Codes: R13.10 - Dysphagia, unspecified Shannan Sal Dec 12, 2016 09:51 [address] DO Dec 14, 2016 01:37
[2016-12-12] MEDS ORDERED: ALBU0.08 NEB (10:13)
[2016-12-12] MEDS ORDERED: SYMB160A INH (10:13)
[2016-12-12] MEDS ORDERED: IPRA0.02 NEB (10:13)
[2016-12-12] MEDS ORDERED: NIFE30TA61 PO (10:13)
[2016-12-12] MEDS ORDERED: PRED20 PO (10:13)
[2016-12-12] MEDS ORDERED: NEBULIZER/ADULT1 KIT (10:20)
--- NOTE | 2016-12-12 10:20 | HHI.FF ---
Face to Face Verification Diagnosis: (1) COPD (chronic obstructive pulmonary disease) (2) HTN (hypertension), benign (3) History of atrial fibrillation (4) CAD (coronary artery disease) (5) Hypoxia (6) Dysphagia Physical Therapy Order: Evaluate and Treat, Improve ambulation, Strength and gait training Home Health Nursing Order: Signs/symptoms of disease process Nursing assessment with vital signs I have seen patient Alfredo Khan on 12/12/16. My clinical findings support the need for the requested home health care services because: Patient has SOB Deconditioned w/ increased weakness I certify that my clinical findings support that this patient is homebound because: Hx COPD- exertion dyspnea/weakness Shannan Sal Dec 12, 2016 10:20
--- NOTE | 2016-12-12 10:26 | HHI.DCPOC ---
Discharge Care Plan Diagnosis: (1) COPD (chronic obstructive pulmonary disease) (2) Hypoxia (3) HTN (hypertension), benign (4) History of atrial fibrillation (5) CAD (coronary artery disease) (6) Dysphagia Goals to Promote Your Health NEW MEDICATIONS: - Albuterol neb/ipratropium Neb one vial of each liquid medicine to be put in the nebulizer and aerosolized medicine to be inhaled into the lungs every 4 hours while awake for the next three days, then can be used as needed for any shortness of breath or wheezing - Prednisone taper - Take 20mg twice daily x 3 days, then decrease to 20 mg once daily x 3 days, then decrease to 10mg once daily x 3 days, then stop CHANGED MEDICATIONS: - Nifedipine 30mg has been increased to twice daily - You are to followup with your PCP, Dr. Lindsey in 1 week, call for an appt. Directions to Meet Your Goals Take your medications as prescribed Follow your dietary instruction Follow activity as directed Keep your appointments as scheduled Take your immunizations and boosters as scheduled If your symptoms worsen call your PCP, if no PCP go to Urgent Care Center or Emergency Room Smoking is Dangerous to Your Health. Avoid second hand smoke Call the 24-hour hour crisis hotline for domestic abuse at Shannan Sal Dec 12, 2016 10:26 [place] DO Dec 14, 2016 01:38
[2016-12-12] MEDS ORDERED: LOPERAMIDE HCL 2 MG CAP PO ONE (11:00)
[2016-12-12] MEDS ORDERED: BUDESONIDE-FORMOTEROL 160/4.5 MCG INHALER INH SCH (12:00)
== END 2016-12-12 14:38 | disposition home or self-care (01) ==
LOC: NEPC 11:44 → NEDA 14:52 → NEPFCDU 18:53
PROVIDERS: ADMIT Hospitalist; ATTEND Hospitalist
DX: J44.1 Chronic obstructive pulmonary disease with (acute) exacerbation (principal); R09.02 Hypoxemia; I10 Essential (primary) hypertension; I25.10 Atherosclerotic heart disease of native coronary artery without angina pectoris; R13.10 Dysphagia, unspecified; I48.91 Unspecified atrial fibrillation; Z95.1 Presence of aortocoronary bypass graft; G20 Parkinson's disease; Z86.711 Personal history of pulmonary embolism; Z72.0 Tobacco use; Z99.81 Dependence on supplemental oxygen
CPT/HCPCS: 71010; 71275; 80048; 82550; 83735; 83880; 84443; 84484; 85025; 85610; 85730; 92526; 92610; 93005; 94640; 94664; 96374; 96375; 96376; 97162; 99285; G0378; G8987; G8988; G8996; G8997; G8998; J2930; J7613; Q9967

== ENCOUNTER 2017-04-30 22:12 | Inpatient (IN) | payer MEDICARE ==
[~2017-04-30] VITALS: Ht 175.3 cm; Wt 83.0 kg
[~2017-04-30 22:12] MED LIST changes: -ADAL60TA9 PO; +ALBU0.08 NEB; -ASPI81 PO; +ASPI81CH6 CHEW; +ATOR40TA16 PO; -ATOR40TA49 PO; -GABA300C3 PO; +GABA300C5 PO; +IPRA0.02 NEB; -LISI-366 PO; +LISI-515 PO; +NEBULIZER/ADULT1 KIT; +NIFE30TA61 PO; +PRED20 PO; -SINE25100 PO; +SINE25TA PO; +VITA2000 PO; -VITA200017 PO; -WARF2.5T40 PO; -WARF2TAB PO; -Z.0.OXYGENDME NC
[2017-04-30 22:15] VITALS: BP 183/94; PULSE 82; RESP 24; O2SAT 88
--- NOTE | 2017-04-30 22:35 | PD ---
HPI Chief Complaint: shortness of breath Time Seen by Provider: 22:17 Travel History International Travel<30 days: No Contact w/Intl Traveler<30days: No History of Present Illness HPI The patient is an 86 year old male who presents to the [facility] emergency department with a history of dyspnea on exertion that began 2 days ago. The patient reports that he has had an occasional productive sounding cough, however he has not been able to bring anything up. He reports that he does have a history of COPD. He reports that he has a history of coronary artery disease. He is not aware of any prior history of congestive heart failure. He is followed by Dr. arizmendi for his primary care. He is on a low-dose aspirin daily. He reports that he does have a history of bilateral pulmonary embolisms in 2013, however he is no longer on any blood thinners. Patient reports that he quit smoking in 1978, however he lives with a smoker. He denies having any chest pain. He reports that he has lightheaded sensation shortness of breath with exertion. He denies having any known fevers. He did have a home doctor, out to his house earlier today and he was diagnosed with pneumonia. He was given a perception for antibiotic, however he has not been able to fill the prescription yet. On review of systems otherwise, the patient denies having any neck pain, chest pain, abdominal pain, vomiting, diarrhea, urinary symptoms , or focal neurologic symptoms. The patient reports having generalized weakness and fatigue. The patient reports that his lower extremity edema is no worse than usual. He denies having any calf pain or erythema. [facility] Past Medical History Narrative Medical The patient's past medical history is significant for coronary artery disease status post coronary artery bypass grafting 2 vessels and 2 stents placed since then last in 2008, history of COPD, bilateral pulmonary embolisms, spinal stenosis, Parkinson's, skin cancer status post resection from the left side of his face, abdominal aortic aneurysm status post repair, hypertension, hyperlipidemia. AAA: Yes (2010) Arthritis: No Asthma: No Autoimmune Disease: Yes (childhood) Blood Disorders: No Anxiety: No Depression: No Heart Rhythm Problems: No Cancer: No Cardiac Catheterization: Yes (2 STENTS 2005) Cardiovascular Problems: Yes High Cholesterol: Yes Chest Pain: No Congestive Heart Failure: Yes COPD: No Cerebrovascular Accident: No Diabetes: No Diminished Hearing: No Endocrine: No GERD: No Glaucoma: No Genitourinary: No Headaches: No Hepatitis: No Hiatal Hernia: No Hypertension: Yes Immune Disorder: No Implanted Vascular Access Dvce: Yes Kidney Stones: No Musculoskeletal: No Neurologic: Yes (SPINAL STENOSIS) Parkinson's Disease: Yes (PARKINSON SYMPTOMS) Psychiatric: No Reproductive: Yes (ED) Respiratory: No Immunizations Current: No Myocardial Infarction: No Renal Failure: No Seizures: No Sleep Apnea: No Thyroid Disease: No Ulcer: No Past Surgical History Narrative Surgical The Patient surgical history with reviewed according to the nursing records Abdominal Aneurysm Repair: Yes (2010) AICD: No Appendectomy: Yes Body Medical Devices: BILAT EYE LENS IMPLANTS Cardiac Surgery: Yes (cabg X 2 ) Coronary Artery Bypass Graft: Yes (X2 VESSELS) Coronary Stent: Yes Eye Surgery: Yes (BILATERAL CATARACTS) Pacemaker: No Other Surgery: Yes (AAA IN 2010) Social History Alcohol Use: Yes (GLASS OF WINE PER DAY) Tobacco Use: Yes (CIGAR/DAY) Substance Use: No Allergies-Medications (Allergen,Severity, Reaction): Coded Allergies: clopidogrel (Verified Allergy, Severe, HIVES,SWELLING THROAT, 05/01/17) penicillin G (Verified Allergy, Intermediate, SOB/HIVES/ THROAT SWELLING, 05/01/17) pyridoxine (Verified Allergy, Mild, ITCHING AND HIVES, 05/01/17) Uncoded Allergies: LEONARD CHERRIES (Allergy, Intermediate, SOB/HIVES, 10/05/10) Reported Meds & Prescriptions Reported Meds & Active Scripts Active Ipratropium Neb (Ipratropium Bedrock) 0.5 Mg/2.5 Ml Amp 0.5 Mg NEB Q4HR NEB PRN Take every 4 hours with the albuterol while awake for the next three days, then can be used as needed Albuterol Neb (Albuterol Sulfate) 2.5 Mg/3 Ml Neb 2.5 Mg NEB Q4HR NEB Take every 4 hours while awake for the next three days, then can be used as needed Nifedipine ER 24 HR (Nifedipine) 30 Mg Tab 30 Mg PO BID Reported Advil Pm (Ibuprofen-Diphenhydramine) 200-38 Mg Tab 2 Tab PO HS PRN Vitamin D3 (Cholecalciferol) 2,000 Unit Cap 2,000 Units PO DAILY Aspirin Low Dose (Aspirin) 81 Mg Chew 81 Mg CHEW DAILY Gabapentin 300 Mg Cap 300 Mg PO TID Sinemet (Carbidopa-Levodopa) 25-100 Mg Tab 1 Tab PO Q8HR Atorvastatin (Atorvastatin Calcium) 40 Mg Tab 40 Mg PO HS Lisinopril 20 Mg Tab 20 Mg PO BID Review of Systems Except as stated in HPI: all other systems reviewed are Neg General / Constitutional: No: Fever Eyes: No: Visual changes HENT: Positive: Congestion, No: Headaches Cardiovascular: Positive: Dyspnea on exertion, Edema, No: Chest Pain or Discomfort Respiratory: Positive: Cough, Shortness of Breath Gastrointestinal: No: Abdominal Pain Genitourinary: No: Dysuria Musculoskeletal: No: Pain Skin: No Rash Neurologic: Positive: Weakness, No: Focal Abnormalities, Change in Mentation, Slurred Speech, Sensory Disturbance Psychiatric: No: Depression Endocrine: No: Polydipsia Hematologic/Lymphatic: No: Easy Bruising Physical Exam Narrative General: The patient is a well-developed well-nourished male with conversational dyspnea. Head and Neck exam: Head is normocephalic atraumatic. Eyes: EOMI, pupils are equal round and reactive to light. Nose: Midline septum with pink mucous membranes Mouth: Dentition unremarkable. Moist mucus membranes. Posterior oropharynx is not erythematous. No tonsillar hypertrophy. Uvula midline. Airway patent. Neck: No palpable lymphadenopathy. No nuchal rigidity. No thyromegaly. Cardiovascular: Regular rate and rhythm without murmurs, gallops, or rubs. Lungs: The patient is noted to have decreased breath sounds in bilateral bases. Crackles audible in the right lower lung base. No wheezes or rhonchi. The patient has some conversational dyspnea noted. No accessory muscle use noted. No paroxysmal abdominal breathing. No tripoding. Abdomen: Soft, without tenderness to palpation in all 4 quadrants of the abdomen. No guarding, rebound, or rigidity. Negative Wells's sign. Extremities: No clubbing or cyanosis. The patient has trace pedal edema bilateral lower extremities. 2+ pulses in all 4 extremities. Back: No costovertebral angle tenderness to palpation. Neurologic Exam: Grossly nonfocal. Skin Exam: No rash noted. Intact skin that is warm and dry. Data Data Last Documented VS Vital Signs Date Time Temp Pulse Resp B/P (MAP) Pulse Ox O2 Delivery O2 Flow Rate FiO2 05/01/17 00:30 78 20 166/88 (114) 95 Ventilator 6.00 04/30/17 23:40 97.8 Orders Orders Electrocardiogram (04/30/17 22:26) Complete Blood Count With Diff (04/30/17 22:) Comprehensive Metabolic Panel (04/30/17 22:) Creatine Kinase (Cpk) (04/30/17 22:) Ckmb (Isoenzyme) Profile (04/30/17 22:) Troponin I (04/30/17:) B-Type Natriuretic Peptide (04/30/17:) Prothrombin Time / Inr (Pt) (04/30/17:) Act Partial Throm Time (Ptt) (04/30/17 22:) Blood Culture (04/30/17:) C-Reactive Protein (Crp) (04/30/17:) Lipase (04/30/17:) Urinalysis - C+S If Indicated (04/30/17:) Westergren Sedimentation Rate (04/30/17:26) Magnesium (Mg) (04/30/17:) Influenzae A/B Antigen (04/30/17 22:26) Chest, Single Ap (04/30/17 22:26) Iv Access Insert/Monitor (04/30/17 22:) Ecg Monitoring (04/30/17:) Oximetry (04/30/17:) Lactic Acid Sepsis Protocol (04/30/17 22:26) Ct Pulmonary Angiogram (04/30/17 22:26) Iohexol 350 Inj (Omnipaque 350 Inj) (05/01/17 00:37) Nitroglycerin 2% Oint (Nitroglycerin 2% (05/01/17 01:15) Aspirin Chew (Aspirin Chew) (05/01/17 01:15) Levofloxacin 750 Mg Premix Inj (Levaquin (05/01/17 01:15) Admit Order (Ed Use Only) (05/01/17 01:16) Consult Cardiology (05/01/17 ) Vital Signs (Adult) SHANE.Q4H (05/01/17 01:17) Activity Oob Ad Lidia (05/01/17 01:17) Diet Heart Healthy (05/01/17 Breakfast) (Hub Use Only)Inp Phy Cons/Ref (05/01/17 ) Labs Laboratory Tests Test 04/30/17 22:20 04/30/17 22:55 White Blood Count 13.4 TH/MM3 Red Blood Count 6.01 MIL/MM3 Hemoglobin 16.0 GM/DL Hematocrit 50.2 % Mean Corpuscular Volume 83.6 FL Mean Corpuscular Hemoglobin 26.7 PG Mean Corpuscular Hemoglobin Concent 31.9 % Red Cell Distribution Width 15.9 % Platelet Count 201 TH/MM3 Mean Platelet Volume 8.5 FL Neutrophils (%) (Auto) 68.6 % Lymphocytes (%) (Auto) 21.5 % Monocytes (%) (Auto) 8.2 % Eosinophils (%) (Auto) 1.4 % Basophils (%) (Auto) 0.3 % Neutrophils # (Auto) 9.2 TH/MM3 Lymphocytes # (Auto) 2.9 TH/MM3 Monocytes # (Auto) 1.1 TH/MM3 Eosinophils # (Auto) 0.2 TH/MM3 Basophils # (Auto) 0.0 TH/MM3 CBC Comment DIFF FINAL Differential Comment Prothrombin Time 11.8 SEC Prothromb Time International Ratio 1.2 RATIO Activated Partial Thromboplast Time 25.9 SEC Blood Urea Nitrogen 14 MG/DL Creatinine 0.90 MG/DL Random Glucose 143 MG/DL Total Protein 6.5 GM/DL Albumin 3.3 GM/DL Calcium Level 8.2 MG/DL Magnesium Level 1.8 MG/DL Alkaline Phosphatase 110 U/L Aspartate Amino Transf (AST/SGOT) 44 U/L Alanine Aminotransferase (ALT/SGPT) 16 U/L Total Bilirubin 0.6 MG/DL Sodium Level 143 MEQ/L Potassium Level 3.2 MEQ/L Chloride Level 109 MEQ/L Carbon Dioxide Level 25.5 MEQ/L Anion Gap 9 MEQ/L Estimat Glomerular Filtration Rate 80 ML/MIN Total Creatine Kinase 59 U/L Troponin I 0.28 NG/ML C-Reactive Protein 1.90 MG/DL B-Type Natriuretic Peptide 561 PG/ML Lipase 73 U/L Erythrocyte Sedimentation Rate 1 mm/hr Lactic Acid Level 2.0 mmol/L [facility] Medical Decision Making Medical Screen Exam Complete: Yes Emergency Medical Condition: Yes Medical Record Reviewed: Yes Interpretation(s) Last Impressions Chest X-Ray 04/30/17 1355 Signed Impressions: Service Date/Time: Sunday, April 30, 2017 22:39 - CONCLUSION: Right lower lobe infiltrate. Cardiomegaly. Az Bhatia Jr., MD CT Angiography 04/30/17 1616 Signed Impressions: Service Date/Time: Monday, May 01, 2017 00:25 - CONCLUSION: 1. No pulmonary embolus. 2. Chronic diffuse interstitial disease. Dean Aldana MD Differential Diagnosis Pneumonia, versus congestive heart failure, versus acute coronary syndrome, versus pulmonary embolism, versus pneumothorax Narrative Course During the course of the patients emergency department visit, the patients history, examination, and differential diagnosis were reviewed with the patient. The patient was placed on a team supervisor with oximetry and frequent blood pressure monitoring. The patient had IV access obtained and blood work sent for analysis. EKG shows no evidence of acute ST segment elevation infarct. The patients laboratory studies were reviewed and remarkable for a white count of 13.4, hemoglobin 16, platelets 201 with 8.2 monocytes, sedimentation rate is 1. CMP is remarkable for potassium of 3.2 which was supplemented orally, chloride 109, glucose 143, AST 44, troponin I is slightly elevated at 0.28, C- reactive protein 1.9, BNP 561, lipase 73, PT 11.8, PTT 25.9. Radiology studies were reviewed and remarkable for a chest x-ray that shows a right lower lobe infiltrate, cardiomegaly, otherwise no acute abnormality. CTA to rule out PE due to the patient's hypoxemia on room air shows no PE, chronic diffuse interstitial disease noted. I spoke to the patient's vice president sales regarding this patient's case and the elevated troponin. He did agree with the plan to start the patient on heparin per [place] protocol. The patient was also given aspirin 324 mg by mouth 1. The patient continues to deny chest pain. The patient was given nitroglycerin 1 inch the chest wall. Regarding the patient's right lower lobe infiltrate given the patient's penicillin allergy the patient was given Levaquin 750 mg IV times one. The patients results were discussed with the patient, including the plan of care. I explained that further testing and/ or monitoring is indicated based on the patients history, examination, and/ or laboratory findings. Therefore, I recommended admission for additional evaluation. The patient expressed understanding and was agreeable with this plan. The patient was admitted to the hospital in guarded condition and [facility] Physician Communication Physician Communication The patient's case including history, pertinent physical examination findings, and laboratory studies were discussed with Dr. Elijah cardenas. It was agreed that the [facility] I also spoke to Dr. arizmendi at approximately 1:20 AM regarding this patient's case. He was agreeable with the plan for the patient to receive an adult aspirin, nitroglycerin paste 1 inch the chest wall, heparin per [place] protocol for suspected non-STEMI. A consultation will be placed to Dr. arizmendi for the morning. Diagnosis Primary Impression: Interstitial lung disease Additional Impression: Elevated troponin Admitting Information Admitting Physician Requests: Admit Kimberly Parker MD Apr 30, 2017 22:35
[2017-04-30 22:51] VITALS: BP 166/84; PULSE 79; RESP 20
--- NOTE | 2017-04-30 23:00 | RADRPT ---
EXAM DATE/TIME: 04/30/2017 22:39 [facility] COMPARISON: CHEST SINGLE AP, December 10, 2016, 12:20. INDICATIONS : Cough. Short of breath. MEDICAL HISTORY : Cardiovascular disease. Congestive heart failure. Hypertension. Parkinson's. auto-immune. SURGICAL HISTORY : Appendectomy. ENCOUNTER: Initial ACUITY: 1 week PAIN SCORE: 1/10 LOCATION: Bilateral chest FINDINGS: A single portable frontal view of the chest shows a patchy area of consolidation involving the medial right lung base. Elevation of left hemidiaphragm. Left lung is clear. No effusions. Median sternotom y wires. Mild cardiomegaly. CONCLUSION: Right lower lobe infiltrate. Cardiomegaly. Az Bhatia Jr., MD on April 30, 2017 at 22:56 Board Certified Radiologist. This report was verified electronically.
[2017-04-30 23:29] LABS: AUTOMATED NEUTROPHIL # 9.2 TH/MM3 (1.8-7.7); BASOPHIL % 0.3 % (0.0-2.0); EOSINOPHIL # 0.2 TH/MM3 (0-0.4); EOSINOPHIL % 1.4 % (0.0-4.0); HEMATOCRIT 50.2 % (39.0-51.0); LYMPH % 21.5 % (9.0-44.0); LYMPHOCYTE # 2.9 TH/MM3 (1.0-4.8); MEAN CELL VOLUME 83.6 FL (80.0-100.0); MEAN CORPUSCULAR HEMOGLOBIN 26.7 PG (27.0-34.0); MEAN CORPUSCULAR HGB CONC 31.9 % (32.0-36.0); MEAN PLATELET VOLUME 8.5 FL (7.0-11.0); MONO % 8.2 % (0.0-8.0); MONOCYTE # 1.1 TH/MM3 (0-0.9); NEUT % 68.6 % (16.0-70.0); PLATELET COUNT 201 TH/MM3 (150-450); RED BLOOD COUNT 6.01 MIL/MM3 (4.50-5.90); RED CELL DISTRIBUTION WIDTH 15.9 % (11.6-17.2); WHITE BLOOD COUNT 13.4 TH/MM3 (4.0-11.0)
[2017-04-30 23:33] LABS: INTERNATIONAL NORMALIZED RATIO 1.2 RATIO; PROTHROMBIN TIME - PATIENT 11.8 SEC (9.8-11.6)
[2017-04-30 23:40] VITALS: BP 173/85; PULSE 78; RESP 20; TEMP 97.8; O2SAT 94
[2017-04-30 23:51] LABS: ALBUMIN 3.3 GM/DL (3.4-5.0); ALT (GPT) 16 U/L (12-78); AST (GOT) 44 U/L (15-37); BICARBONATE 25.5 MEQ/L (21.0-32.0); BLOOD UREA NITROGEN 14 MG/DL (7-18); CALCIUM 8.2 MG/DL (8.5-10.1); CHLORIDE 109 MEQ/L (98-107); GLOMERULAR FILTRATION RATE 80 ML/MIN (>89); GLUCOSE,RANDOM 143 MG/DL (74-106); LIPASE 73 U/L (73-393); MAGNESIUM 1.8 MG/DL (1.5-2.5); SODIUM (NA) 143 MEQ/L (136-145)
[2017-04-30 23:53] LABS: ALKALINE PHOSPHATASE 110 U/L (45-117); TOTAL BILIRUBIN ADULT 0.6 MG/DL (0.2-1.0); TOTAL PROTEIN 6.5 GM/DL (6.4-8.2); TROPONIN I 0.28 NG/ML (0.02-0.05)
[2017-05-01] VITALS (33 sets, daily range): BP systolic 99–166; BP diastolic 54–89; PULSE 58–102; RESP 18–22; TEMP 97.6–98.7; O2SAT 88–98
[2017-05-01] MEDS ORDERED: IOHEXOL 350 MG/ML 10 ML VIAL (for RAD DIAG) IVCONTRAST ONE (00:37)
--- NOTE | 2017-05-01 00:45 | RADRPT ---
EXAM DATE/TIME: 05/01/2017 00:25 [facility] COMPARISON: CT PULMONARY ANGIOGRAM, December 10, 2016, 13:46. INDICATIONS : Shortness of breath. IV CONTRAST: 80 cc Omnipaque 350 (iohexol) IV RADIATION DOSE: 22.43 CTDIvol (mGy) MEDICAL HISTORY : Cardiovascular disease. SURGICAL HISTORY : CABG ENCOUNTER: Initial ACUITY: 1 day PAIN SCALE: 3/10 LOCATION: Bilateral chest TECHNIQUE: Volumetric scanning of the chest was performed using a pulmonary embolism protocol MIP images were re constructed. Using automated exposure control and adjustment of the mA and/or kV according to patien t size, radiation dose was kept as low as reasonably achievable to obtain optimal diagnostic quality images. DICOM format image data is available electronically for review and comparison. Follow-up recommendations for detected pulmonary nodules are based at a minimum on nodule size and pa tient risk factors according to Fleischner Society Guidelines. FINDINGS: PULMONARY ARTERIES: No filling defects are seen in the pulmonary arteries through the segmental level. LUNGS: There is chronic interstitial disease seen throughout the lungs PLEURAE: There is no pleural thickening or pleural effusion. MEDIASTINUM: The patient is status post sternotomy. Calcifications are seen in the cahto coronary arteries. Scatt ered normal-sized lymph nodes are seen. MUSCULOSKELETAL: Within normal limits for patient age. MISCELLANEOUS: The visualized upper abdominal organs demonstrate no acute abnormality. CONCLUSION: 1. No pulmonary embolus. 2. Chronic diffuse interstitial disease. Dean Aldana MD on May 01, 2017 at 0:40 Board Certified Radiologist. This report was verified electronically.
[2017-05-01] MEDS ORDERED: NITROGLYCERIN 2% OINT 1 GM PACKET TOPICAL ONE (01:15)
[2017-05-01] MEDS ORDERED: ASPIRIN 81 MG CHEW TAB CHEW ONE (01:15)
[2017-05-01] MEDS ORDERED: LEVOFLOXACIN 750 MG PREMIX INJ 150 ML IV ONE (01:15)
[2017-05-01] MEDS ORDERED: POTASSIUM BICARBONATE 25 MEQ EFFERVESCENT TAB PO ONE (01:30)
[2017-05-01] MEDS ORDERED: HEPARIN SODIUM - IV 10,000 UNITS/10 ML VIAL IV ONE (01:45)
[2017-05-01] MEDS ORDERED: RESP: ALBUTEROL 2.5 MG/IPRATROPIUM 0.5 MG NEB (SCH) NEB ONE (01:45)
[2017-05-01] MEDS: HEPARIN-D5W 25,000 U/250 ML 250 ML IV PRN (02:50)
[2017-05-01] MEDS ORDERED: ADVI200T17 PO (04:05)
[2017-05-01 04:09] LABS: TROPONIN I 0.35 NG/ML (0.02-0.05)
[2017-05-01 05:29] LABS: HEMATOCRIT 45.8 % (39.0-51.0); HEMOGLOBIN 14.7 GM/DL (13.0-17.0); MEAN CELL VOLUME 83.7 FL (80.0-100.0); MEAN CORPUSCULAR HEMOGLOBIN 26.8 PG (27.0-34.0); MEAN CORPUSCULAR HGB CONC 32.1 % (32.0-36.0); MEAN PLATELET VOLUME 7.9 FL (7.0-11.0); PLATELET COUNT 181 TH/MM3 (150-450); RED BLOOD COUNT 5.46 MIL/MM3 (4.50-5.90); RED CELL DISTRIBUTION WIDTH 15.6 % (11.6-17.2); WHITE BLOOD COUNT 10.6 TH/MM3 (4.0-11.0)
[2017-05-01 05:50] LABS: INTERNATIONAL NORMALIZED RATIO 1.2 RATIO; PROTHROMBIN TIME - PATIENT 12.3 SEC (9.8-11.6)
--- NOTE | 2017-05-01 07:57 | PD.CONS ---
HPI Service cardiology Consult Requested By Reason for Consult elevated troponin Primary Care Physician Unknown History of Present Illness this is an 86 yo M with history of CAD, CABG x 3, COPD, P.E (2013) who presented with progressive SOB x 2 days. He has been feeling more weak in the past several days with cough and stated he felt an episode of near syncope at home yesterday. He states his saw him "blank out" for a minute and he was drooling. EMS was then called; chest films show a right-sided infiltrate. troponins show intermediate elevation. He does admit to chronic non-exertional chest pain related to his chronic COPD. Currently he is dyspneic at rest, using a non-rebreather mask. (Aracelis Qureshi) Review of Systems Consitutional: COMPLAINS OF: Fatigue, Fever, DENIES: Chills, Weight gain, Weight loss Respiratory: COMPLAINS OF: See HPI, Cough, Shortness of breath, DENIES: Snoring , Wheezing Cardiovascular: DENIES: Palpitations, Tachycardia Gastrointestinal: DENIES: Nausea, Vomiting, Change in bowel habits, Reflux, Bloody stools, Melena (Aracelis Qureshi) Past Family Social History Allergies: Coded Allergies: clopidogrel (Verified Allergy, Severe, HIVES,SWELLING THROAT, 05/01/17) penicillin G (Verified Allergy, Intermediate, SOB/HIVES/ THROAT SWELLING, 05/01/17) pyridoxine (Verified Allergy, Mild, ITCHING AND HIVES, 05/01/17) Uncoded Allergies: LEONARD CHERRIES (Allergy, Intermediate, SOB/HIVES, 10/05/10) Past Medical History The patient's past medical history is significant for coronary artery disease status post coronary artery bypass grafting 2 vessels and 2 stents placed since then last in 2008, history of COPD, bilateral pulmonary embolisms, spinal stenosis, Parkinson's, skin cancer status post resection from the left side of his face, abdominal aortic aneurysm status post repair, hypertension, hyperlipidemia. Past Surgical History Abdominal Aneurysm Repair: Yes (2010) AICD: No Appendectomy: Yes Body Medical Devices: BILAT EYE LENS IMPLANTS Cardiac Surgery: Yes (cabg X 2 ) Coronary Artery Bypass Graft: Yes (X2 VESSELS) Coronary Stent: Yes Eye Surgery: Yes (BILATERAL CATARACTS) Pacemaker: No Other Surgery: Yes (AAA IN 2010) Reported Medications Reported Meds & Active Scripts Active Nebulizer/Adult Mask (N/A) 1 Kit Kit Kit .ROUTE DIRECTED Ipratropium Neb (Ipratropium [place]) 0.5 Mg/2.5 Ml Amp 0.5 Mg NEB Q4HR NEB PRN Take every 4 hours with the albuterol while awake for the next three days, then can be used as needed Albuterol Neb (Albuterol Sulfate) 2.5 Mg/3 Ml Neb 2.5 Mg NEB Q4HR NEB Take every 4 hours while awake for the next three days, then can be used as needed Nifedipine ER 24 HR (Nifedipine) 30 Mg Tab 30 Mg PO BID Reported Advil Pm (Ibuprofen-Diphenhydramine) 200-38 Mg Tab 2 Tab PO HS PRN Vitamin D3 (Cholecalciferol) 2,000 Unit Cap 2,000 Units PO DAILY Aspirin Low Dose (Aspirin) 81 Mg Chew 81 Mg CHEW DAILY Gabapentin 300 Mg Cap 300 Mg PO TID Sinemet (Carbidopa-Levodopa) 25-100 Mg Tab 1 Tab PO Q8HR Atorvastatin (Atorvastatin Calcium) 40 Mg Tab 40 Mg PO HS Lisinopril 20 Mg Tab 20 Mg PO BID Active Ordered Medications Current Medications Medications (Trade) Dose Ordered Sig/Nathan Route Start Time Stop Time Status Last Admin Levofloxacin/ Dextrose 150 ml @ 100 mls/hr Q24H IV 05/02/17 02:00 (Duoneb Neb) 1 ampule Q6HR WHILE AWAKE NEB NEB 05/01/17 08:00 (Prinivil) 20 mg Q12HR PO 05/01/17 09:00 Heparin Sodium/ Dextrose 250 ml @ 10 mls/hr TITRATE PRN IV 05/01/17 01:45 05/01/17 02:50 Family History non-contributory Social History one glass of wine per day; one cigar per day; no illicit drug use (Aracelis Qureshi) Physical Exam Vital Signs Vital Signs Date Time Temp Pulse Resp B/P (MAP) Pulse Ox O2 Delivery O2 Flow Rate FiO2 05/01/17 06:35 83 05/01/17 05:28 75 05/01/17 04:47 79 05/01/17 04:35 98.5 82 19 156/84 (108) 95 05/01/17 03:33 05/01/17 03:00 82 22 129/87 (101) 88 Nasal Cannula 6.00 05/01/17 02:30 86 22 118/77 (91) 92 Nasal Cannula 6.00 05/01/17 01:40 94 Nasal Cannula 6.00 05/01/17 01:36 80 18 154/89 (110) 93 Nasal Cannula 5.00 05/01/17 00:30 78 20 166/88 (114) 95 Ventilator 6.00 04/30/17 23:40 97.8 78 20 173/85 (114) 94 Nasal Cannula 6.00 04/30/17 22:51 79 20 166/84 (111) Nasal Cannula 6.00 04/30/17 22:40 96 Nasal Cannula 6.00 04/30/17 22:15 82 24 183/94 (123) 88 Physical Exam GENERAL: SKIN: Warm and dry. HEAD: Atraumatic. Normocephalic. EYES: Pupils equal and round. ENT: No nasal bleeding or discharge. Mucous membranes pink and moist. NECK: Trachea midline. No JVD. CARDIOVASCULAR: Regular rate and rhythm. no murmurs RESPIRATORY: No accessory muscle use. Clear to auscultation. Breath sounds equal bilaterally. GASTROINTESTINAL: Abdomen soft, non-tender, nondistended. Hepatic and splenic margins not palpable. MUSCULOSKELETAL: Extremities without clubbing, cyanosis, or edema. No obvious deformities. NEUROLOGICAL: Awake and alert. No obvious cranial nerve deficits. Normal speech. PSYCHIATRIC: Appropriate mood and affect; insight and judgment normal. Laboratory Laboratory Tests Test 04/30/17 22:20 04/30/17 22:55 05/01/17 03:35 05/01/17 05:15 White Blood Count 13.4 10.6 Red Blood Count 6.01 5.46 Hemoglobin 16.0 14.7 Hematocrit 50.2 45.8 Mean Corpuscular Volume 83.6 83.7 Mean Corpuscular Hemoglobin 26.7 26.8 Mean Corpuscular Hemoglobin Concent 31.9 32.1 Red Cell Distribution Width 15.9 15.6 Platelet Count 201 181 Mean Platelet Volume 8.5 7.9 Neutrophils (%) (Auto) 68.6 Lymphocytes (%) (Auto) 21.5 Monocytes (%) (Auto) 8.2 Eosinophils (%) (Auto) 1.4 Basophils (%) (Auto) 0.3 Neutrophils # (Auto) 9.2 Lymphocytes # (Auto) 2.9 Monocytes # (Auto) 1.1 Eosinophils # (Auto) 0.2 Basophils # (Auto) 0.0 CBC Comment DIFF FINAL Differential Comment Prothrombin Time 11.8 12.3 Prothromb Time International Ratio 1.2 1.2 Activated Partial Thromboplast Time 25.9 76.2 Blood Urea Nitrogen 14 Creatinine 0.90 Random Glucose 143 Total Protein 6.5 Albumin 3.3 Calcium Level 8.2 Magnesium Level 1.8 Alkaline Phosphatase 110 Aspartate Amino Transf (AST/SGOT) 44 Alanine Aminotransferase (ALT/SGPT) 16 Total Bilirubin 0.6 Sodium Level 143 Potassium Level 3.2 Chloride Level 109 Carbon Dioxide Level 25.5 Anion Gap 9 Estimat Glomerular Filtration Rate 80 Total Creatine Kinase 59 56 Troponin I 0.28 0.35 C-Reactive Protein 1.90 B-Type Natriuretic Peptide 561 Lipase 73 Erythrocyte Sedimentation Rate 1 Lactic Acid Level 2.0 Test 05/01/17 06:14 Blood Gas Puncture Site RT RADIAL Blood Gas Patient Temperature 98.6 Blood Gas HCO3 26 Blood Gas Base Excess 2.3 Blood Gas Oxygen Saturation 87 Arterial Blood pH 7.42 Arterial Blood Partial Pressure CO2 41 Arterial Blood Partial Pressure O2 59 Arterial Blood Oxygen Content 18.4 Arterial Blood Carboxyhemoglobin 1.4 Arterial Blood Methemoglobin 1.1 Blood Gas Hemoglobin 15.1 Oxygen Delivery Device VENTI MASK Blood Gas Inspired Oxygen 50 Date/Time Source Procedure Growth Status 04/30/17 23:05 Blood Peripheral Aerobic Blood Culture Pending Received 04/30/17 23:05 Blood Peripheral Anaerobic Blood Culture Pending Received 04/30/17 23:12 Nasal Aspirate Influenza Types A,B Antigen (SURAJ) - Final NEGATIVE FOR FLU A AND B ANTIGEN.... Complete (Aracelis Qureshi) Result Diagram: 05/01/1715 04/30/172219 Imaging Last 48 hours Impressions Chest X-Ray 04/30/172225 Signed Impressions: Service Date/Time: Sunday, April 30, 2017 22:39 - CONCLUSION: Right lower lobe infiltrate. Cardiomegaly. Az Bhatia Jr., MD CT Angiography 04/30/172225 Signed Impressions: Service Date/Time: Monday, May 01, 2017 00:25 - CONCLUSION: 1. No pulmonary embolus. 2. Chronic diffuse interstitial disease. Dean Aldana MD (Aracelis Qureshi) Assessment and Plan Problem List: (1) CAD (coronary artery disease) ICD Codes: I25.10 - CAD (coronary artery disease) Status: Chronic (2) HTN (hypertension), benign ICD Codes: I10 - Essential (primary) hypertension Status: Chronic (3) COPD (chronic obstructive pulmonary disease) ICD Codes: J44.9 - Chronic obstructive pulmonary disease, unspecified Status: Acute Assessment and Plan this is an 86 yo M with history of CAD, CABG x 3, AAA, carotid stenosis, COPD, P.E (2013) who presented with progressive SOB x 2 days. He has been feeling more weak in the past several days with cough and stated he felt an episode of near syncope at home yesterday. found to have r-sided PNA. CAD- CABG x 3, 2012 cath revealed JELLY to be atretic but LAD and Lcx patent. 2015 lexiscan did not show ischemia. NSTEMI- troponin elevation 0.28/ 0.35. demand mediated secondary to PNA vs. ischemia will obtain 2d echo, watch troponin trend (Aracelis Qureshi) Assessment and Plan echo today to eval EF last SPECT 2015 when breathing improves,likely plan for stress test. Suspect demand mediated event. continue supportive care PNA (Anirudh Villa MD) Aracelis Qureshi May 01, 2017 07:57 Anirudh Villa MD May 01, 2017 09:01
[2017-05-01] MEDS ORDERED: RESP: ALBUTEROL 2.5 MG/IPRATROPIUM 0.5 MG NEB (SCH) NEB (08:00)
[2017-05-01] MEDS: LISINOPRIL 20 MG TAB PO SCH ×2 (09:00→21:21)
--- NOTE | 2017-05-01 10:42 | HHI.HP ---
HPI Service [facility] Primary Care Physician Dr. Peña Admission Diagnosis Pneumonia, hypoxemia, elevated troponin Chief Complaint: SOB Travel History International Travel<30 Days: No Contact w/Intl Traveler <30 Da: No Traveled to Known Affected Are: No History of Present Illness Mr. Khan is a pleasant 86 yo male with COPD/ILD, CAD s/p CABG x 3, hx bilateral PE's in 2013. He presented to the ED at [facility] with complaints of progressive SOB with exertion x 2 days. He has reportedly had increased generalized weakness and cough for the last few days. Pt reports that he has been home bound for several month and has been getting visits from Home Doc since 12/2016. He has very limited mobility at home and reports that he generally sit in his recliner most of the day and ambulates short distances to the bathroom and that is it. He had not been on supplemental O2 prior to this admission. He had a home doctor evaluate him yesterday and he was diagnosed with pneumonia. He was given a perception for antibiotic, however he has not been able to fill the prescription yet. He felt more SOB and there was a questionable near syncopal episode where he "blanked out" yesterday and [facility] was called Pt had a CTA thorax in the ED which showed no pulmonary embolus and chronic diffuse interstitial disease. CXR indicated right lower lobe infiltrate and cardiomegaly. On telemetry pt with noted sinus arrhythmia. He is currently requiring partial nonrebreather at 12-15L and he desaturated rapidly when off the mask. Review of Systems Constitutional: DENIES: Fever, Chills Eyes: DENIES: Vision loss Ears, nose, mouth, throat: DENIES: Hearing loss Respiratory: COMPLAINS OF: Cough, Shortness of breath Cardiovascular: DENIES: Chest pain, Palpitations, Lower Extremity Edema Gastrointestinal: DENIES: Abdominal pain, Diarrhea, Nausea, Vomiting Genitourinary: DENIES: Urinary incontinence Musculoskeletal: DENIES: Back pain, Neck pain Integumentary: DENIES: Rash Neurologic: COMPLAINS OF: Abnormal gait, Localized weakness, Poor Balance Psychiatric: DENIES: Confusion Past Family Social History Past Medical History CAD s/p coronary artery bypass grafting 2 vessels and 2 stents placed since then last in 2008 COPD Interstitial lung disease Bilateral pulmonary embolisms in 2013 Spinal stenosis Parkinson's disease Hx of skin cancer s/p resection from the left side of his face Hx of AAA s/p repair Hypertension Hyperlipidemia Past Surgical History CABG x 2 Coronary stenting x 2 Appendectomy AAA repair Skin cancer removal Reported Medications Ipratropium Neb (Ipratropium [place]) 0.5 Mg/2.5 Ml Amp 0.5 Mg NEB Q4HR NEB PRN Take every 4 hours with the albuterol while awake for the next three days, then can be used as needed Albuterol Neb (Albuterol Sulfate) 2.5 Mg/3 Ml Neb 2.5 Mg NEB Q4HR NEB Take every 4 hours while awake for the next three days, then can be used as needed Nifedipine ER 24 HR (Nifedipine) 30 Mg Tab 30 Mg PO BID Advil Pm (Ibuprofen-Diphenhydramine) 200-38 Mg Tab 2 Tab PO HS PRN Vitamin D3 (Cholecalciferol) 2,000 Unit Cap 2,000 Units PO DAILY Aspirin Low Dose (Aspirin) 81 Mg Chew 81 Mg CHEW DAILY Gabapentin 300 Mg Cap 300 Mg PO TID Sinemet (Carbidopa-Levodopa) 25-100 Mg Tab 1 Tab PO Q8HR Atorvastatin (Atorvastatin Calcium) 40 Mg Tab 40 Mg PO HS Lisinopril 20 Mg Tab 20 Mg PO BID Allergies: Coded Allergies: clopidogrel (Verified Allergy, Severe, HIVES,SWELLING THROAT, 05/01/17) penicillin G (Verified Allergy, Intermediate, SOB/HIVES/ THROAT SWELLING, 05/01/17) pyridoxine (Verified Allergy, Mild, ITCHING AND HIVES, 05/01/17) Uncoded Allergies: LEONARD CHERRIES (Allergy, Intermediate, SOB/HIVES, 10/05/10) Family History Noncontributory Social History Remote hx of tobacco use, quit in 1978 but he did live with a smoker after that and was exposed to second hand smoke Occasionally has a glass of wine Pt lives locally with his spouse Physical Exam Vital Signs Vital Signs Date Time Temp Pulse Resp B/P (MAP) Pulse Ox O2 Delivery O2 Flow Rate FiO2 05/01/17 10:00 72 05/01/17 09:07 104/64 (77) 05/01/17 09:00 74 05/01/17 08:09 94 Partial Rebreather 12.00 05/01/17 08:00 94 Partial Non-Rebreather 15.00 05/01/17 08:00 66 05/01/17 07:49 97.6 83 20 99/54 (69) 93 05/01/17 07:00 72 05/01/17 06:35 83 05/01/17 05:28 75 05/01/17 04:47 79 05/01/17 04:35 98.5 82 19 156/84 (108) 95 05/01/17 03:33 05/01/17 03:00 82 22 129/87 (101) 88 Nasal Cannula 6.00 05/01/17 02:30 86 22 118/77 (91) 92 Nasal Cannula 6.00 05/01/17 01:40 94 Nasal Cannula 6.00 05/01/17 01:36 80 18 154/89 (110) 93 Nasal Cannula 5.00 05/01/17 00:30 78 20 166/88 (114) 95 Ventilator 6.00 04/30/17 23:40 97.8 78 20 173/85 (114) 94 Nasal Cannula 6.00 04/30/17 22:51 79 20 166/84 (111) Nasal Cannula 6.00 04/30/17 22:40 96 Nasal Cannula 6.00 04/30/17 22:15 82 24 183/94 (123) 88 Physical Exam GENERAL: This is a well-nourished, well-developed patient, in no apparent distress. HEENT: Atraumatic. Normocephalic. No temporal or scalp tenderness. No scleral icterus. On partial nonrebreather NECK: Trachea midline, supple, nontender. CARDIO: Irregular rhythm, rate controlled. RESP: Decreased air movement. No wheezes, rales, or rhonchi. ABD: +Bs, soft, non-tender, nondistended. EXT: Extremities without clubbing, cyanosis, or edema. NEURO: Awake and alert. Motor and sensory grossly within normal limits. Normal speech. Laboratory Laboratory Tests Test 04/30/17 22:20 04/30/17 22:55 05/01/17 03:35 05/01/17 05:15 White Blood Count 13.4 10.6 Red Blood Count 6.01 5.46 Hemoglobin 16.0 14.7 Hematocrit 50.2 45.8 Mean Corpuscular Volume 83.6 83.7 Mean Corpuscular Hemoglobin 26.7 26.8 Mean Corpuscular Hemoglobin Concent 31.9 32.1 Red Cell Distribution Width 15.9 15.6 Platelet Count 201 181 Mean Platelet Volume 8.5 7.9 Neutrophils (%) (Auto) 68.6 Lymphocytes (%) (Auto) 21.5 Monocytes (%) (Auto) 8.2 Eosinophils (%) (Auto) 1.4 Basophils (%) (Auto) 0.3 Neutrophils # (Auto) 9.2 Lymphocytes # (Auto) 2.9 Monocytes # (Auto) 1.1 Eosinophils # (Auto) 0.2 Basophils # (Auto) 0.0 CBC Comment DIFF FINAL Differential Comment Prothrombin Time 11.8 12.3 Prothromb Time International Ratio 1.2 1.2 Activated Partial Thromboplast Time 25.9 76.2 Blood Urea Nitrogen 14 Creatinine 0.90 Random Glucose 143 Total Protein 6.5 Albumin 3.3 Calcium Level 8.2 Magnesium Level 1.8 Alkaline Phosphatase 110 Aspartate Amino Transf (AST/SGOT) 44 Alanine Aminotransferase (ALT/SGPT) 16 Total Bilirubin 0.6 Sodium Level 143 Potassium Level 3.2 Chloride Level 109 Carbon Dioxide Level 25.5 Anion Gap 9 Estimat Glomerular Filtration Rate 80 Total Creatine Kinase 59 56 Troponin I 0.28 0.35 C-Reactive Protein 1.90 B-Type Natriuretic Peptide 561 Lipase 73 Erythrocyte Sedimentation Rate 1 Lactic Acid Level 2.0 Test 05/01/17 06:14 05/01/17 09:45 Blood Gas Puncture Site RT RADIAL Blood Gas Patient Temperature 98.6 Blood Gas HCO3 26 Blood Gas Base Excess 2.3 Blood Gas Oxygen Saturation 87 Arterial Blood pH 7.42 Arterial Blood Partial Pressure CO2 41 Arterial Blood Partial Pressure O2 59 Arterial Blood Oxygen Content 18.4 Arterial Blood Carboxyhemoglobin 1.4 Arterial Blood Methemoglobin 1.1 Blood Gas Hemoglobin 15.1 Oxygen Delivery Device VENTI MASK Blood Gas Inspired Oxygen 50 Activated Partial Thromboplast Time 44.5 Date/Time Source Procedure Growth Status 04/30/17 23:05 Blood Peripheral Aerobic Blood Culture Pending Received 04/30/17 23:05 Blood Peripheral Anaerobic Blood Culture Pending Received 04/30/17 23:12 Nasal Aspirate Influenza Types A,B Antigen (SURAJ) - Final NEGATIVE FOR FLU A AND B ANTIGEN.... Complete Result Diagram: 05/01/17 0515 04/30/172219 Imaging Last Impressions Chest X-Ray 04/30/172225 Signed Impressions: Service Date/Time: Sunday, April 30, 2017 22:39 - CONCLUSION: Right lower lobe infiltrate. Cardiomegaly. Az Bhatia Jr., MD CT Angiography 04/30/17 2226 Signed Impressions: Service Date/Time: Monday, May 01, 2017 00:25 - CONCLUSION: 1. No pulmonary embolus. 2. Chronic diffuse interstitial disease. MD Mikel Vazquez VTE Risk Assessment Caprini VTE Risk Assessment: Mod/High Risk (score >= 2) Caprini Risk Assessment Model Point Value = 1 Point Value = 2 Point Value = 3 Point Value = 5 Age 41-60 Minor surgery BMI > 25 kg/m2 Swollen legs Varicose veins or History of unexplained or recurrent spontaneous Oral contraceptives or hormone replacement Sepsis (< 1 month) Serious lung disease, including pneumonia (< 1 month) Abnormal pulmonary function Acute myocardial infarction Congestive heart failure (< 1 month) History of inflammatory bowel disease Medical patient at bed rest Age 61-74 Arthroscopic surgery Major open surgery (> 45 min) Laparoscopic surgery (> 45 min) Malignancy Confined to bed (> 72 hours) Immobilizing plaster cast Central venous access Age >= 75 History of VTE Family history of VTE Factor V Leiden Prothrombin [id number] Lupus anticoagulant Anticardiolipin antibodies Elevated serum homocysteine Heparin-induced thrombocytopenia Other congenital or acquired thrombophilia Stroke (< 1 month) Elective arthroplasty Hip, pelvis, or leg fracture Acute spinal cord injury (< 1 month) Prophylaxis Regimen Total Risk Factor Score Risk Level Prophylaxis Regimen 0-1 Low Early ambulation 2 Moderate Order ONE of the following: *Sequential Compression Device (SCD) *Heparin 5000 units SQ BID 3-4 Higher Order ONE of the following medications: *Heparin 5000 units SQ TID *Enoxaparin/Lovenox 40 mg SQ daily (WT < 150 kg, CrCl > 30 mL/min) *Enoxaparin/Lovenox 30 mg SQ daily (WT < 150 kg, CrCl > 10-29 mL/min) *Enoxaparin/Lovenox 30 mg SQ BID (WT < 150 kg, CrCl > 30 mL/min) AND/OR *Sequential Compression Device (SCD) 5 or more Highest Order ONE of the following medications: *Heparin 5000 units SQ TID (Preferred with Epidurals) *Enoxaparin/Lovenox 40 mg SQ daily (WT < 150 kg, CrCl > 30 mL/min) *Enoxaparin/Lovenox 30 mg SQ daily (WT < 150 kg, CrCl > 10-29 mL/min) *Enoxaparin/Lovenox 30 mg SQ BID (WT < 150 kg, CrCl > 30 mL/min) AND *Sequential Compression Device (SCD) Assessment and Plan Problem List: (1) Hypoxia ICD Codes: R09.02 - Hypoxia Status: Acute Plan: Hypoxia Interstitial Lung Disease COPD - Pt 86 yo male with COPD/ILD, CAD s/p CABG x 3, hx bilateral PE's in 2013. - He presented to the ED at [facility] on 04/30/17 with complaints of progressive SOB with exertion x 2 days. He has reportedly had increased generalized weakness and cough for the last few days. Pt reports that he has been home bound for several month and has been getting visits from Home Doc since 12/2016. - He had a home doctor evaluate him yesterday and he was diagnosed with pneumonia. He was given a prescription for antibiotic, however he has not been able to fill the prescription yet. He felt more SOB and there was a questionable near syncopal episode where he "blanked out" yesterday and [facility] was called - Pt had a CTA thorax in the ED which showed no pulmonary embolus and chronic diffuse interstitial disease. - CXR indicated right lower lobe infiltrate and cardiomegaly. - ABG while on venti-mask @ 50 noted O2 sat 87%, pH 7.42, pO2 59, pCO2 41 - On telemetry pt with noted sinus arrhythmia. - He is currently requiring partial nonrebreather at 12-15L and he desaturated rapidly when off the mask. - Pt was started on Levaquin IV for possible pneumonia - Duonebs Q4H and Q2H PRN - Start Solu-Medrol - Pt states that he is a DNR and that his is bringing paperwork for his AD - Monitor clinical status closely - Consult Pulmonary medicine - Pt has been home bound for several months and he feels that he has been in somewhat of a decline in his functionality and his respiratory status. We will consult Palliative Medicine to help on the case and we did discuss Hospice care with him and he was open to that but he is not sure his will be ready for that conversation yet. (2) Interstitial lung disease ICD Codes: J84.9 - Interstitial pulmonary disease, unspecified Status: Chronic Plan: - See above (3) COPD (chronic obstructive pulmonary disease) ICD Codes: J44.9 - Chronic obstructive pulmonary disease, unspecified Status: Chronic Plan: - See above (4) Elevated troponin ICD Codes: R74.8 - Abnormal levels of other serum enzymes Status: Acute Plan: Elevated Troponin CAD HTN - Pt with hx of CAD s/p CABG and stenting previously - Pt had a Lexiscan in 02/2016 which did not show ischemia. - His Troponin are noted to be elevated but flat 0.28 --> 0.35 --> 0.29. - Likely demand mediated secondary to PNA - 2D echo is ordered - Cardiology is following. - Continue supportive care - Lisinopril resumed at admission but BP has been low - Parameters to be placed on the Lisinopril - Hold Nifedipine (5) CAD (coronary artery disease) ICD Codes: I25.10 - CAD (coronary artery disease) Status: Chronic Plan: - See above (6) HTN (hypertension), benign ICD Codes: I10 - Essential (primary) hypertension Status: Chronic Plan: - See above (7) Parkinson disease ICD Codes: G20 - Parkinson's disease Status: Chronic Plan: - Home meds continued - See above Assessment and Plan Patient examined. Assessment and plan formulated with Shannan DELGADO-Joe. I agree with the above. - Pt admitted with c/o worsening SOB. - Pt has had limited mobility for several months and stays in a single room in his home ambulating only to the bathroom - Pt requested Hospice - Pt transferred to Hospice [facility]. Physician Certification 2 Midnight Certification Type: Admission for Inpatient Services Order for Inpatient Services The services are ordered in accordance with Medicare regulations or non- Medicare payer requirements, as applicable. In the case of services not specified as inpatient-only, they are appropriately provided as inpatient services in accordance with the 2-midnight benchmark. Estimated LOS (days): 3 3 days is the estimated time the patient will need to remain in the hospital, assuming treatment plan goals are met and no additional complications. Post-Hospital Plan: Not yet determined Shannan Sal May 01, 2017 10:42 [place] DO May 04, 2017 00:19
[2017-05-01] MEDS ORDERED: ADVIL PM PO PRN (11:45)
[2017-05-01] MEDS: RESP: ALBUTEROL 2.5 MG/IPRATROPIUM 0.5 MG NEB (SCH) NEB ×3 (12:15→20:23)
[2017-05-01] MEDS: GABAPENTIN 300 MG CAP PO SCH ×2 (12:29→17:07)
[2017-05-01] MEDS: methylPREDNISolone SOD SUCC 40 MG/1 ML VIAL IV PUSH SCH ×3 (12:29→22:58)
--- NOTE | 2017-05-01 14:18 | PD.CONS ---
Consult Service Palliative Care Consult Requested By Dr. Cr . Primary Care Physician Unknown . Reason for Consultation a. To assist with evaluation and management of symptoms including: Dyspnea b. To assist medical decision maker(s) with: better understanding of current medical conditions; weighing benefits/burdens of medical treatment options; making medical treatment decisions. . HPI History of Present Illness This 86-year-old male, with a past history of CAD, MS, PVD, atrial fib, PE, Parkinson's, and COPD, had been declining over the past year, with worsening weakness, weight loss, and dyspnea with exertion. In recent days, he was more short of breath and secured a visit from a physician at home who had given him a prescription for antibiotics for possible pneumonia the day prior to this admission. He was unable to fill a prescription at this time, but presented to the emergency department late last evening because of the worsening dyspnea. Although he has chronic chest discomfort, chest pain did not seem to be a primary feature or to have changed significantly from his usual pattern. In the emergency department, findings included: * Alert, some dyspnea * Temp 97.8, pulse 78, respirations 20, blood pressure 173/85, oxygen saturation initially in the 80s, then 94% on 6 L * White count 13.4, hemoglobin 16.0 * Sodium 143, creatinine 0.9, albumin 3.3 * Lactic acid 2.0 * Initial troponin 0.28 * Chest x-ray with right lower lobe consolidation * CTA of the chest revealed diffuse interstitial lung disease, but no evidence of PE Cultures were obtained, antibiotics and steroids were initiated, and the patient was admitted. He continued to need O2 at least 6 L to prevent hypoxia. Follow-up troponin was 0.35, and the patient was felt to have suffered a non- ST elevation MS. The patient had related to his attending physician that he has a DNR, living well, and DPOA. Palliative Care was consulted to assist with symptom management, and to enter into discussions with the patient and his regarding his current illnesses, the prognosis, and the benefits and burdens of the various treatment choices. . Function/Cognitive Trajectory The patient had been declining over the past year, with worsening weakness and significant dyspnea with minimal exertion. He was getting quite dyspneic just taking a few steps to get to his bathroom and back to his recliner or bed. He reports he has lost 15 pounds over the past 6 months, but he was able to take care of most of his own ADLs. .. Review of Systems Constitutional: COMPLAINS OF: Fatigue, Weight loss Endocrine: DENIES: Polyuria Eyes: DENIES: Eye inflammation Ears, nose, mouth, throat: DENIES: Epistaxis Respiratory: COMPLAINS OF: Cough, Shortness of breath Cardiovascular: COMPLAINS OF: Chest pain (chronic), Dyspnea on Exertion, DENIES : Lower Extremity Edema Gastrointestinal: DENIES: Bloody stools, Diarrhea, Vomiting, Vomiting blood Genitourinary: DENIES: Hematuria Musculoskeletal: DENIES: Back pain Integumentary: COMPLAINS OF: Abnormal pigmentation Hematologic/Lymphatics: COMPLAINS OF: Bruising Immunologic/Allergic: COMPLAINS OF: Urticaria Neurologic: COMPLAINS OF: Seizures, Tremor (history of Parkinson's) Psychiatric: COMPLAINS OF: Confusion, Hallucinations Past Family Social History Coded Allergies: clopidogrel (Verified Allergy, Severe, HIVES,SWELLING THROAT, 05/01/17) penicillin G (Verified Allergy, Intermediate, SOB/HIVES/ THROAT SWELLING, 05/01/17) pyridoxine (Verified Allergy, Mild, ITCHING AND HIVES, 05/01/17) Uncoded Allergies: LEONARD CHERRIES (Allergy, Intermediate, SOB/HIVES, 10/05/10) Past Medical History * COPD * Parkinson's disease * CAD, history of MS * PVD * Hypertension * Hyperlipidemia * History of atrial fibrillation * Bilateral PE 2013 * Skin cancers * Spinal stenosis . Past Surgical History * CABG 1994 * Cataracts * Coronary stents 2003 and 2008 * Skin cancer excisions * AAA 10/07/10 * Appendectomy 12/04/12 . Reported Medications Reported Meds & Active Scripts Active Ipratropium Neb (Ipratropium Beaver) 0.5 Mg/2.5 Ml Amp 0.5 Mg NEB Q4HR NEB PRN Take every 4 hours with the albuterol while awake for the next three days, then can be used as needed Albuterol Neb (Albuterol Sulfate) 2.5 Mg/3 Ml Neb 2.5 Mg NEB Q4HR NEB Take every 4 hours while awake for the next three days, then can be used as needed Nifedipine ER 24 HR (Nifedipine) 30 Mg Tab 30 Mg PO BID Reported Advil Pm (Ibuprofen-Diphenhydramine) 200-38 Mg Tab 2 Tab PO HS PRN Vitamin D3 (Cholecalciferol) 2,000 Unit Cap 2,000 Units PO DAILY Aspirin Low Dose (Aspirin) 81 Mg Chew 81 Mg CHEW DAILY Gabapentin 300 Mg Cap 300 Mg PO TID Sinemet (Carbidopa-Levodopa) 25-100 Mg Tab 1 Tab PO Q8HR Atorvastatin (Atorvastatin Calcium) 40 Mg Tab 40 Mg PO HS Lisinopril 20 Mg Tab 20 Mg PO BID . Current Medications Medications (Trade) Dose Ordered Sig/Nathan Route Start Time Stop Time Status Last Admin Levofloxacin/ Dextrose 150 ml @ 100 mls/hr Q24H IV 05/02/17 02:00 (Prinivil) 20 mg Q12HR PO 05/01/17 09:00 Heparin Sodium/ Dextrose 250 ml @ 10 mls/hr TITRATE PRN IV 05/01/17 01:45 05/01/17 02:50 (Lipitor) 40 mg HS PO 05/01/17 21:00 (Sinemet 25-100 Mg) 1 tab Q8HR PO 05/01/17 14:00 (Neurontin) 300 mg TID PO 05/01/17 13:00 05/01/17 12:29 Patient Own Medication PT OWN MED: ADVIL PM 2 T... HS PRN PO 05/01/17 11:45 (Duoneb Neb) 1 ampule Q4HR WHILE AWAKE NEB NEB 05/01/17 12:00 05/01/17 12:15 (Mycostatin Powder) 1 applic Q8HR TOPICAL 05/01/17 14:00 (SoluMEDROL INJ) 40 mg Q6HR IV PUSH 05/01/17 12:00 05/01/17 12:29 Family History The patient's father of a ruptured abdominal aneurysm, and his mother "adenoma old age" of Alzheimer's dementia. One brother at age 64 of lung cancer, and his sister is in a memory care unit with Alzheimer's. . Substance Use Tobacco: Quit smoking 1978 Alcohol: Occasional Prescription med abuse: None Illicits: None . Psychosocial History The patient was born in [place], [place], lived for many years in [place], and moved to [place] in 2002. He lives with his . He has been twice, currently for 27 years. He has 4 children, 2 daughters that are nurses, a son who is a DENTAL LABORATORY TECHNICIAN APPRENTICE, and a second son who has been estranged from the patient for many years. 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 . Spiritual/Cultural Factors Baptism background but not spiritual or worship in recent years. 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 . Living Will: Copy in medical record Health Care Surrogate: Copy in medical record Today's verbally stated goals: The patient reports that he has a signed DNR at home and desires to continue that status. He is also interested in engaging hospice services as he transitions to focus on comfort. . Family/friends goals: The patient's supports the patient's goals . Ethical and Legal Issues There are no ethical issues that would impact his care were decision-making at this time. The patient has capacity for decision-making. The will be the HCP. . Physical Exam Vital Signs Date Time Temp Pulse Resp B/P (MAP) Pulse Ox O2 Delivery O2 Flow Rate FiO2 05/01/17 13:00 58 05/01/17 12:00 80 05/01/17 11:38 97.8 05/01/17 11:21 76 21 124/58 (80) 97 05/01/17 11:00 73 05/01/17 10:00 72 05/01/17 09:07 104/64 (77) 05/01/17 09:00 74 05/01/17 08:09 94 Partial Rebreather 12.00 05/01/17 08:00 94 Partial Non-Rebreather 15.00 05/01/17 08:00 66 05/01/17 07:49 97.6 83 20 99/54 (69) 93 05/01/17 07:00 72 05/01/17 06:35 83 05/01/17 05:28 75 05/01/17 04:47 79 05/01/17 04:35 98.5 82 19 156/84 (108) 95 05/01/17 03:33 05/01/17 03:00 82 22 129/87 (101) 88 Nasal Cannula 6.00 05/01/17 02:30 86 22 118/77 (91) 92 Nasal Cannula 6.00 05/01/17 01:40 94 Nasal Cannula 6.00 05/01/17 01:36 80 18 154/89 (110) 93 Nasal Cannula 5.00 05/01/17 00:30 78 20 166/88 (114) 95 Ventilator 6.00 04/30/17 23:40 97.8 78 20 173/85 (114) 94 Nasal Cannula 6.00 04/30/17 22:51 79 20 166/84 (111) Nasal Cannula 6.00 04/30/17 22:40 96 Nasal Cannula 6.00 04/30/17 22:15 82 24 183/94 (123) 88 Exam CONSTITUTIONAL/GENERAL: This is an adequately nourished patient, in no apparent distress while at rest with O2 via mask. TUBES/LINES/DRAINS: O2 via mask, IV, Chavira SKIN: No jaundice, rashes, or lesions. Ecchymoses on upper extremities. No wounds seen anteriorly. Skin temperature appropriate. Not diaphoretic. HEAD: Atraumatic. Normocephalic. EYES: Pupils equal and round and reactive. Extraocular motions intact. No scleral icterus. No injection or drainage. Fundi not examined. ENT: Hearing grossly normal. Nose without bleeding or purulent drainage. Throat without visible erythema, exudates, masses, or lesions. NECK: Trachea midline. Supple, nontender. No palpable thyroid enlargement or nodularity. CARDIOVASCULAR: Regular rate and rhythm without murmurs, gallops, or rubs. No JVD. Peripheral pulses symmetric. RESPIRATORY/CHEST: Symmetric, unlabored respirations while at rest. Scattered rales diffusely GASTROINTESTINAL: Abdomen soft, non-tender, nondistended. No hepato-splenomegaly , or palpable masses. No guarding. Bowel sounds present. GENITOURINARY: Without palpable bladder distension. Chavira catheter in place. MUSCULOSKELETAL: Extremities without clubbing, cyanosis, or edema. No joint tenderness or effusion noted. No calf tenderness. No mottling or clubbing. LYMPHATICS: No palpable cervical or supraclavicular adenopathy. NEUROLOGICAL: Awake and alert. Motor and sensory grossly within normal limits. Follows commands. Cognitively sharp. Moves all extremities. PSYCHIATRIC: No obvious anxiety/depression. no apparent hallucinations or other psychotic thought process. . Diagnostic Tests Laboratory Laboratory Tests Test 04/30/17 22:20 04/30/17 22:55 05/01/17 03:35 05/01/17 05:15 White Blood Count 13.4 TH/MM3 (4.0-11.0) 10.6 TH/MM3 (4.0-11.0) Red Blood Count 6.01 MIL/MM3 (4.50-5.90) 5.46 MIL/MM3 (4.50-5.90) Hemoglobin 16.0 GM/DL (13.0-17.0) 14.7 GM/DL (13.0-17.0) Hematocrit 50.2 % (39.0-51.0) 45.8 % (39.0-51.0) Mean Corpuscular Volume 83.6 FL (80.0-100.0) 83.7 FL (80.0-100.0) Mean Corpuscular Hemoglobin 26.7 PG (27.0-34.0) 26.8 PG (27.0-34.0) Mean Corpuscular Hemoglobin Concent 31.9 % (32.0-36.0) 32.1 % (32.0-36.0) Red Cell Distribution Width 15.9 % (11.6-17.2) 15.6 % (11.6-17.2) Platelet Count 201 TH/MM3 (150-450) 181 TH/MM3 (150-450) Mean Platelet Volume 8.5 FL (7.0-11.0) 7.9 FL (7.0-11.0) Neutrophils (%) (Auto) 68.6 % (16.0-70.0) Lymphocytes (%) (Auto) 21.5 % (9.0-44.0) Monocytes (%) (Auto) 8.2 % (0.0-8.0) Eosinophils (%) (Auto) 1.4 % (0.0-4.0) Basophils (%) (Auto) 0.3 % (0.0-2.0) Neutrophils # (Auto) 9.2 TH/MM3 (1.8-7.7) Lymphocytes # (Auto) 2.9 TH/MM3 (1.0-4.8) Monocytes # (Auto) 1.1 TH/MM3 (0-0.9) Eosinophils # (Auto) 0.2 TH/MM3 (0-0.4) Basophils # (Auto) 0.0 TH/MM3 (0-0.2) CBC Comment DIFF FINAL Differential Comment Prothrombin Time 11.8 SEC (9.8-11.6) 12.3 SEC (9.8-11.6) Prothromb Time International Ratio 1.2 RATIO 1.2 RATIO Activated Partial Thromboplast Time 25.9 SEC (24.3-30.1) 76.2 SEC (24.3-30.1) Blood Urea Nitrogen 14 MG/DL (7-18) Creatinine 0.90 MG/DL (0.60-1.30) Random Glucose 143 MG/DL (74-106) Total Protein 6.5 GM/DL (6.4-8.2) Albumin 3.3 GM/DL (3.4-5.0) Calcium Level 8.2 MG/DL (8.5-10.1) Magnesium Level 1.8 MG/DL (1.5-2.5) Alkaline Phosphatase 110 U/L (45-117) Aspartate Amino Transf (AST/SGOT) 44 U/L (15-37) Alanine Aminotransferase (ALT/SGPT) 16 U/L (12-78) Total Bilirubin 0.6 MG/DL (0.2-1.0) Sodium Level 143 MEQ/L (136-145) Potassium Level 3.2 MEQ/L (3.5-5.1) Chloride Level 109 MEQ/L (98-107) Carbon Dioxide Level 25.5 MEQ/L (21.0-32.0) Anion Gap 9 MEQ/L (5-15) Estimat Glomerular Filtration Rate 80 ML/MIN (>89) Total Creatine Kinase 59 U/L (39-308) 56 U/L (39-308) Troponin I 0.28 NG/ML (0.02-0.05) 0.35 NG/ML (0.02-0.05) C-Reactive Protein 1.90 MG/DL (0.00-0.30) B-Type Natriuretic Peptide 561 PG/ML (0-100) Lipase 73 U/L (73-393) Erythrocyte Sedimentation Rate 1 mm/hr (0-20) Lactic Acid Level 2.0 mmol/L (0.4-2.0) Test 05/01/17 06:14 05/01/17 09:45 Blood Gas Puncture Site RT RADIAL Blood Gas Patient Temperature 98.6 Blood Gas HCO3 26 mmol/L (22-26) Blood Gas Base Excess 2.3 mmol/L (-2-2) Blood Gas Oxygen Saturation 87 % (90-100) Arterial Blood pH 7.42 (7.380-7.420) Arterial Blood Partial Pressure CO2 41 mmHg (38-42) Arterial Blood Partial Pressure O2 59 mmHg (61-120) Arterial Blood Oxygen Content 18.4 Vol % (12.0-20.0) Arterial Blood Carboxyhemoglobin 1.4 % (0-4) Arterial Blood Methemoglobin 1.1 % (0-2) Blood Gas Hemoglobin 15.1 G/DL (12.0-16.0) Oxygen Delivery Device VENTI MASK Blood Gas Inspired Oxygen 50 % Activated Partial Thromboplast Time 44.5 SEC (24.3-30.1) Troponin I 0.29 NG/ML (0.02-0.05) Result Diagram: 05/01/17 0515 04/30/172219 Microbiology Microbiology Date/Time Source Procedure Growth Status 04/30/17 23:05 Blood Peripheral Aerobic Blood Culture - Preliminary NO GROWTH IN 1 DAY Resulted 04/30/17 23:05 Blood Peripheral Anaerobic Blood Culture - Preliminary NO GROWTH IN 1 DAY Resulted 04/30/17 22:50 Blood Peripheral Aerobic Blood Culture - Preliminary NO GROWTH IN 1 DAY Resulted 04/30/17 22:50 Blood Peripheral Anaerobic Blood Culture - Preliminary NO GROWTH IN 1 DAY Resulted 04/30/17 23:12 Nasal Aspirate Influenza Types A,B Antigen (SURAJ) - Final NEGATIVE FOR FLU A AND B ANTIGEN.... Complete Imaging Last Impressions Chest X-Ray 04/30/172225 Signed Impressions: Service Date/Time: Sunday, April 30, 2017 22:39 - CONCLUSION: Right lower lobe infiltrate. Cardiomegaly. Az Bhatia Jr., MD CT Angiography 04/30/172225 Signed Impressions: Service Date/Time: Monday, May 01, 2017 00:25 - CONCLUSION: 1. No pulmonary embolus. 2. Chronic diffuse interstitial disease. Dean Aldana MD Patient/Family Conference Present at Family Conference: Patient, , and me . Family Conference Time (mins): 62 Family Conference Location: Bedside Issues Discussed: * Palliative care role, purpose, approach * Hospice care role, purpose, approach * Additional medical, psychosocial, and spiritual history * Patients general health, functional status, and cognitive changes in the months leading up to the current hospitalization * Patient/family understanding of the current medical problems * Patient/family understanding of prognosis * Patients goals of care as best understood from advance directives and/or conversations and/or values * Current medical treatment options and benefits/burdens of those options * Likely scenarios comparing ongoing aggressive care with a transition to comfort measures only * Questions answered to the best of my ability * Palliative care contact information provided The patient reports that he has a signed DNR at home and desires to continue that status. He is also interested in engaging hospice services as he transitions to focus on comfort. . 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 Spiritual: Baptism background but not spiritual or worship in recent years. 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 Legal: The patient has capacity for decision-making. His spouse would be the HCP.. Ethical issues impacting care: None . Important Contacts Spouse: Ceferino Khan Home: . Prognosis The patient has been declining for several months, and he has significant underlying COPD, cardiac disease, and pulmonary fibrosis. He is appropriate for hospice services . Code Status: No Code Plan * DO NOT RESUSCITATE, per request of patient 05/01/17 * DECISION-MAKING: The patient has capacity for decision-making. His spouse will be the HCP. * GOALS: The patient reports that he has a signed DNR at home and desires to continue that status. He is also interested in engaging hospice services as he transitions to focus on comfort. * Dr. Cr had previously entered a hospice consult. * SYMPTOMS: The patient's dyspnea is improved on supplemental oxygen and while at rest. He does not desire medication for any pain. I have no medication recommendations at this time. * Palliative Care will continue to follow the patient during this hospitalization. . Time Spent Total Floor Time (mins): 66 Face to Face Time (mins): 89 >50% Counseling/Coord of Care: Yes (d/w Dr. Cr) Thank you for the opportunity to participate in the care of Mr. Khan. Attestation To help prompt me to consider important information that might be impacting today's encounter and assessment, information from prior notes written by myself or my colleagues may have been "brought forward" into today's note. My signature on this note, however, is an attestation that I personally performed the exam, history, and/or decision-making noted today, and, unless otherwise indicated, the interactions with patient, family, and staff as well as the review of records all occurred today. I also attest that the listed assessment and stated plan reflect my best clinical judgment today based on the combination of historical information, prior notes, and today's exam/ interactions. When time spent is documented, it refers only to time spent today by the signer, or if indicated, combined time spent today by collaborating physician/nurse practitioner. Mireya Velasquez MD May 01, 2017 14:18
[2017-05-01] MEDS: CARBIDOPA/LEVODOPA 25 MG/100 MG TAB PO SCH ×2 (17:07→21:21)
[2017-05-01] MEDS: NYSTATIN 100,000 U/GM PWD 15 GM BTL TOPICAL SCH ×2 (17:07→21:22)
--- NOTE | 2017-05-01 19:42 | EKG ---
Date Performed: 04/30/2017 Time Performed: 22:30:17 PTAGE: 86 years EKG: Normal Sinus rhythm with premature atrial contractions, and Premature ventricular contractions. Left ventricular hypertr ophy. ST DEVIATION AND MODERATE T-WAVE ABNORMALITY, CONSIDER ANTERIOR ISCHEMIA. Prolongation of the Q T interval for the heart rate. Nonspecific ST-T wave changes. When compared to previous tracing, the premature ventricular Contractions are new. There has been an overall increase in the nonspecific ST- T wave Changes and the QT interval is now prolonged. Clinical corrolation Is advised. ABNORMAL ECG PREVIOUS TRACING : 12/10/2016 12.23 DOCTOR: Namrata Reilly Interpretating Date/Time 05/01/2017 19:41:12
--- NOTE | 2017-05-01 19:46 | EKG ---
Date Performed: 05/01/2017 Time Performed: 03:24:42 PTAGE: 86 years EKG: Sinus rhythm WITH FREQUENT SUPRAVENTRICULAR PREMATURE COMPLEXES LEFT VENTRICULAR HYPERTROPHY AND ST-T CHANGE Prol ongation of the QT interval. When compared to previous tracing, the premature ventricular Contraction s have resolved. There has been some variation in the nonspecific ST-T wave Changes associated with t he left ventricular hypertrophy, other Diop no significant serial change. ABNORMAL ECG PREVIOUS TRACING : 04/30/2017 22.30 DOCTOR: Namrata Reilly Interpretating Date/Time 05/01/2017 19:44:39
--- NOTE | 2017-05-01 20:01 | ECHRPT ---
Indication: cp CONCLUSIONS Normal left ventricular size. The left ventricular systolic function is low normal with an estimated ejection fraction in the rang e of 50- 55%. Mild mitral valve regurgitation. There is mild tricuspid valve regurgitation. The estimated pulmonary arterial pressure is 23 mmHg. BP: / HR: Rhythm: MEASUREMENTS (Male / Female) Normal Values Technical Quality:Technically difficult study 2D ECHO LV Diastolic Diameter PLAX 3.4 cm 4.2 - 5.9 / 3.9 - 5.3 cm LV Systolic Diameter PLAX 2.6 cm IVS Diastolic Thickness 1.9 cm 0.6 - 1.0 / 0.6 - 0.9 cm LVPW Diastolic Thickness 1.1 cm 0.6 - 1.0 / 0.6 - 0.9 cm LV Relative Wall Thickness 0.9 RV Internal Dim ED PLAX 2.5 cm M-MODE Aortic Root Diameter MM 3.8 cm LA Systolic Diameter MM 4.8 cm LA Ao Ratio MM 1.3 AV Cusp Separation MM 2.3 cm DOPPLER Mitral E Point Velocity 39.5 cm/s Mitral A Point Velocity 58.7 cm/s Mitral E to A Ratio 0.7 LV E' Lateral Velocity 4.0 cm/s Mitral E to LV E' Lateral Ratio 9.9 LV E' Septal Velocity 4.0 cm/s Mitral E to LV E' Septal Ratio 9.9 TR Peak Velocity 179.0 cm/s TR Peak Gradient 12.8 mmHg Right Atrial Pressure 10.0 mmHg Pulmonary Artery Systolic Pressu 22.8 mmHg Right Ventricular Systolic Press 22.8 mmHg FINDINGS LEFT VENTRICLE Normal left ventricular size. The left ventricular systolic function is low normal with an estimated ejection fraction in the rang e of 50- 55%. RIGHT VENTRICLE Normal right ventricular size and systolic function. LEFT ATRIUM The left atrial size is normal. RIGHT ATRIUM The right atrial size is normal. ATRIAL SEPTUM Normal atrial septal thickness without atrial level shunting by limited color doppler interrogation. AORTA The aortic root and proximal ascending aorta are normal in size on limited imaging. MITRAL VALVE Structurally normal mitral valve. Mild mitral valve regurgitation. AORTIC VALVE The aortic valve is not well visualized. TRICUSPID VALVE Structurally normal tricuspid valve. There is mild tricuspid valve regurgitation. The estimated pulmonary arterial pressure is 22.8 mmHg. PULMONARY VALVE No pulmonary valve regurgitation or stenosis. VESSELS The inferior vena cava is normal in size. PERICARDIUM No pericardial effusion. Tutu Silva MD, FACC (Electronically Signed) Final Date:01 May 2017 19:59
[2017-05-01] MEDS ORDERED: ATORVASTATIN 40 MG TAB PO SCH (21:00)
[2017-05-01] MEDS ORDERED: TEMAZEPAM 15 MG CAP PO PRN (21:15)
[2017-05-02] VITALS (23 sets, daily range): BP systolic 149–180; BP diastolic 67–93; PULSE 76–103; RESP 16–19; TEMP 97.6–98.1; O2SAT 90–97
[2017-05-02] MEDS ORDERED: LEVOFLOXACIN 750 MG PREMIX INJ 150 ML IV SCH (02:00)
[2017-05-02] MEDS: HEPARIN-D5W 25,000 U/250 ML 250 ML IV PRN (03:11)
[2017-05-02 05:30] LABS: AUTOMATED NEUTROPHIL # 8.5 TH/MM3 (1.8-7.7); BASOPHIL % 0.1 % (0.0-2.0); HEMATOCRIT 42.6 % (39.0-51.0); HEMOGLOBIN 13.8 GM/DL (13.0-17.0); LYMPHOCYTE # 0.5 TH/MM3 (1.0-4.8); MEAN CELL VOLUME 83.2 FL (80.0-100.0); MEAN CORPUSCULAR HEMOGLOBIN 26.9 PG (27.0-34.0); MEAN CORPUSCULAR HGB CONC 32.3 % (32.0-36.0); MONO % 2.3 % (0.0-8.0); MONOCYTE # 0.2 TH/MM3 (0-0.9); NEUT % 92.6 % (16.0-70.0); PLATELET COUNT 174 TH/MM3 (150-450); RED BLOOD COUNT 5.12 MIL/MM3 (4.50-5.90); RED CELL DISTRIBUTION WIDTH 15.6 % (11.6-17.2); WHITE BLOOD COUNT 9.1 TH/MM3 (4.0-11.0)
[2017-05-02 05:51] LABS: BICARBONATE 27.2 MEQ/L (21.0-32.0); CALCIUM 8.6 MG/DL (8.5-10.1); CREATININE 0.75 MG/DL (0.60-1.30)
[2017-05-02] MEDS: NYSTATIN 100,000 U/GM PWD 15 GM BTL TOPICAL SCH ×2 (06:06→12:58)
[2017-05-02] MEDS: methylPREDNISolone SOD SUCC 40 MG/1 ML VIAL IV PUSH SCH ×3 (06:06→18:00)
[2017-05-02] MEDS: CARBIDOPA/LEVODOPA 25 MG/100 MG TAB PO SCH ×2 (06:06→12:57)
[2017-05-02] MEDS: RESP: ALBUTEROL 2.5 MG/IPRATROPIUM 0.5 MG NEB (SCH) NEB ×3 (07:31→15:55)
[2017-05-02] MEDS: LISINOPRIL 20 MG TAB PO SCH (09:04)
[2017-05-02] MEDS: GABAPENTIN 300 MG CAP PO SCH ×3 (09:04→18:00)
--- NOTE | 2017-05-02 09:14 | PD.CARD.PN ---
Subjective Subjective Remarks Patient has decided to enroll in hospice services. The plan at this time is to maximize his respiratory status prior to discharge with hospice. The patient does not want any further invasive cardiac testing. Objective Medications Current Medications Medications (Trade) Dose Ordered Sig/Nathan Route Start Time Stop Time Status Last Admin Levofloxacin/ Dextrose 150 ml @ 100 mls/hr Q24H IV 05/02/17 02:00 05/02/17 03:05 (Prinivil) 20 mg Q12HR PO 05/01/17 09:00 05/02/17 09:04 Heparin Sodium/ Dextrose 250 ml @ 10 mls/hr TITRATE PRN IV 05/01/17 01:45 05/02/17 03:11 (Lipitor) 40 mg HS PO 05/01/17 21:00 05/01/17 21:21 (Sinemet 25-100 Mg) 1 tab Q8HR PO 05/01/17 14:00 05/02/17 06:06 (Neurontin) 300 mg TID PO 05/01/17 13:00 05/02/17 09:04 Patient Own Medication PT OWN MED: ADVIL PM 2 T... HS PRN PO 05/01/17 11:45 (Duoneb Neb) 1 ampule Q4HR WHILE AWAKE NEB NEB 05/01/17 12:00 05/02/17 07:31 (Mycostatin Powder) 1 applic Q8HR TOPICAL 05/01/17 14:00 05/02/17 06:06 (SoluMEDROL INJ) 40 mg Q6HR IV PUSH 05/01/17 12:00 05/02/17 06:06 (Restoril) 15 mg HS PRN PO 05/01/17 21:15 05/01/17 21:21 Vital Signs / I&O Vital Signs Date Time Temp Pulse Resp B/P (MAP) Pulse Ox O2 Delivery O2 Flow Rate FiO2 05/02/17 08:18 97.7 103 18 180/86 (117) 90 05/02/17 07:32 93 Venturi Mask 6.00 50 05/02/17 06:21 88 05/02/17 05:14 84 05/02/17 04:04 92 05/02/17 03:30 93 Venturi Mask 6.00 05/02/17 03:25 98.1 97 19 161/74 (103) 97 05/02/17 03:25 88 05/02/17 02:35 87 05/02/17 01:10 82 05/02/17 00:17 85 05/01/17 23:20 100 05/01/17 23:20 98.0 97 20 125/67 (86) 96 05/01/17 22:05 93 05/01/17 21:00 102 05/01/17 20:30 96 05/01/17 20:23 98 Partial Rebreather 12.00 05/01/17 19:30 101 05/01/17 19:30 98.4 94 21 154/85 (108) 94 05/01/17 19:30 94 Partial Non-Rebreather 15.00 05/01/17 18:00 100 05/01/17 17:00 100 05/01/17 16:00 94 05/01/17 15:30 98.7 94 20 141/67 (91) 96 05/01/17 15:00 93 05/01/17 14:25 93 05/01/17 13:00 58 05/01/17 12:00 80 05/01/17 11:38 97.8 05/01/17 11:21 76 21 124/58 (80) 97 05/01/17 11:00 73 05/01/17 10:00 72 I/O 05/01/17 05/01/17 05/01/17 05/02/17 05/02/17 05/02/17 07:00 15:00 23:00 07:00 15:00 23:00 Intake Total 270 ml 720 ml 448 ml Output Total 1150 ml 300 ml Balance 270 ml -430 ml 148 ml Intake Oral 120 ml 720 ml 120 ml IV Total 150 ml 328 ml Output Urine Total 1150 ml 300 ml # Bowel Movements 0 Physical Exam GENERAL: Well-developed well-nourished. In no acute distress. NECK: No carotid bruits. No JVD. CARDIOVASCULAR: Controlled rate and regularly irregular rhythm. No murmur appreciated. RESPIRATORY: No accessory muscle use. Clear to auscultation. Expiratory wheezing. MUSCULOSKELETAL: No clubbing or cyanosis. No edema. NEUROLOGICAL: Awake and alert. Normal speech. Laboratory Laboratory Tests Test 05/01/17 09:45 05/01/17 14:05 05/01/17 22:13 05/02/17 04:21 Activated Partial Thromboplast Time 44.5 SEC 38.3 SEC 38.1 SEC 50.3 SEC Troponin I 0.29 NG/ML White Blood Count 9.1 TH/MM3 Red Blood Count 5.12 MIL/MM3 Hemoglobin 13.8 GM/DL Hematocrit 42.6 % Mean Corpuscular Volume 83.2 FL Mean Corpuscular Hemoglobin 26.9 PG Mean Corpuscular Hemoglobin Concent 32.3 % Red Cell Distribution Width 15.6 % Platelet Count 174 TH/MM3 Mean Platelet Volume 9.0 FL Neutrophils (%) (Auto) 92.6 % Lymphocytes (%) (Auto) 5.0 % Monocytes (%) (Auto) 2.3 % Eosinophils (%) (Auto) 0.0 % Basophils (%) (Auto) 0.1 % Neutrophils # (Auto) 8.5 TH/MM3 Lymphocytes # (Auto) 0.5 TH/MM3 Monocytes # (Auto) 0.2 TH/MM3 Eosinophils # (Auto) 0.0 TH/MM3 Basophils # (Auto) 0.0 TH/MM3 CBC Comment DIFF FINAL Differential Comment Blood Urea Nitrogen 14 MG/DL Creatinine 0.75 MG/DL Random Glucose 153 MG/DL Calcium Level 8.6 MG/DL Sodium Level 141 MEQ/L Potassium Level 4.1 MEQ/L Chloride Level 106 MEQ/L Carbon Dioxide Level 27.2 MEQ/L Anion Gap 8 MEQ/L Estimat Glomerular Filtration Rate 99 ML/MIN B-Type Natriuretic Peptide 551 PG/ML Imaging Last Impressions Chest X-Ray 04/30/172225 Signed Impressions: Service Date/Time: Sunday, April 30, 2017 22:39 - CONCLUSION: Right lower lobe infiltrate. Cardiomegaly. Az Bhatia Jr., MD CT Angiography 04/30/172225 Signed Impressions: Service Date/Time: Monday, May 01, 2017 00:25 - CONCLUSION: 1. No pulmonary embolus. 2. Chronic diffuse interstitial disease. Dean Aldana MD Assessment and Plan Problem List: (1) CAD (coronary artery disease) ICD Codes: I25.10 - CAD (coronary artery disease) Status: Chronic (2) HTN (hypertension), benign ICD Codes: I10 - Essential (primary) hypertension Status: Chronic (3) COPD (chronic obstructive pulmonary disease) ICD Codes: J44.9 - Chronic obstructive pulmonary disease, unspecified Status: Chronic Assessment and Plan This is an 86 yo M with history of CAD, CABG x 3, AAA, carotid stenosis, COPD, P.E (2013) who presented with progressive SOB x 2 days. He has been feeling more weak in the past several days with cough and stated he felt an episode of near syncope at home yesterday. found to have r-sided PNA. Hx CAD s/p CABG x 3, 2012 cath revealed JELLY to be atretic but LAD and Lcx patent. 02/2016 lexiscan did not show ischemia. NSTEMI: troponin elevation 0.28/ 0.35. Suspect demand mediated secondary to PNA vs ischemia. The patient is now enrolled in hospice and declines any further cardiac testing including stress test. DC heparin. Echocardiogram with normal systolic function. COPD exacerbation/Pneumonia: Management per primary team. Continue supportive care. Cardiology will likely sign off unless the patient changes his mind about stress test with possible subsequent intervention if needed. Aaron Escobar May 02, 2017 09:14
[2017-05-02] MEDS ORDERED: cloNIDine HCL 0.2 MG TAB PO PRN (12:00)
--- NOTE | 2017-05-02 13:39 | MB ---
cc: [address] DATE OF CONSULTATION 05/02/2017 HISTORY Mr. Khan is an 86-year-old white male with a history of COPD and interstitial lung disease which is chronic, a history of bilateral pulmonary embolism in 2013 and chronic heart failure with underlying coronary artery disease status post previous bypass and stents as recently as 2008. The patient was last admitted to the hospital in 2013 at which tiny he had bilateral pulmonary embolism. Since that time, he has been managed as an outpatient, but he tells me that over the last three or four months, he has been in a continual decline and has not been able to get out of the house. He is actually seen by in the in house physician now from [facility]. He presented to the emergency room on the with increasing shortness of breath. He was unable to fill a prescription for antibiotics he was given for pneumonia. On presentation, he was noted to be dyspneic, very weak, but afebrile. He did require a partial non-rebreather mask to maintain adequate saturation and his chest x-ray suggested a right lower lobe pneumonia. He had a CT angio in light of the prior pulmonary emboli which revealed no pulmonary embolism with chronic diffuse interstitial disease and underlying emphysema. He was started on antibiotics, oxygen, aerosol therapy, and IV corticosteroids and is feeling better. His white count was 13,000 on admission and fell today to 9100. During the course of this stay, he has also been seen by palliative care and has elected to proceed with hospice placement. The initial plan is to [facility] and then hopefully home as he is improving. PAST MEDICAL HISTORY Other than that noted above: 1. Spinal stenosis 2. Parkinson's disease which have been progressively worse and disabling for him due to pain and loss of functional ability. 3. AAA repair in the past. 4. Hyperlipidemia 5. Hypertension 6. He has had a previous appendectomy. CURRENT MEDICATIONS The current medications are reviewed in the EMR. SOCIAL HISTORY He is living with his . Former smoker, but quit smoking years ago. No significant alcohol use. REVIEW OF SYSTEMS Shortness of breath has improved. He has had no chest pain or hemoptysis. He has chronic low back pain. No swelling. PHYSICAL EXAMINATION This is an elderly white male in no distress at rest. VITAL SIGNS: Afebrile. Blood pressure 100/60, pulse is 74, respirations 18-22, O2 sats 94% on a simple face mask. HEAD, EYES, EARS, NOSE, AND THROAT: Sclerae anicteric. Mucous membranes are moist. NECK: Neck veins are not distended. LUNGS: He does have fine bibasilar rales, but very little congestion. No rhonchi. No audible wheezing. CARDIAC: Soft systolic murmur. No audible S3. EXTREMITIES: No edema or calf tenderness. DISCUSSION Mr. Khan presents with chronic lung disease as well as chronic heart disease probably with superimposed pneumonia responding well to current therapy. It is planned for transfer to the [facility] and if he stabilizes, home on Hospice. Continuing oxygen aerosol therapy, oral prednisone, and completing a course of Levaquin a 5-7 days is advisable. If I can be of further assistance, while he is in the hospital, I will be back to see him, but I understand that he will be discharged later today or tomorrow. R. MD CARLIN Ugarte/ALBERTINA /1:12 PM /1:24 PM
--- NOTE | 2017-05-02 14:26 | HHI.HCPN ---
Reason for visit a. To assist with evaluation and management of symptoms including: Dyspnea b. To assist medical decision maker(s) with: better understanding of current medical conditions; weighing benefits/burdens of medical treatment options; making medical treatment decisions. . Subjective/Interval History INTERVAL NOTE: Not much change. The patient has met with the hospice admissions nurse and plans are being made for a transition to a hospice care center. . Advance Directives Living Will: Copy in medical record Health Care Surrogate: Copy in medical record Advance Directive Specifics Significant change in goals: Transition to hospice today. . Objective Vital Signs Date Time Temp Pulse Resp B/P (MAP) Pulse Ox O2 Delivery O2 Flow Rate FiO2 05/02/17 13:28 92 05/02/17 12:11 88 05/02/17 11:25 97.6 86 19 179/93 (121) 96 05/02/17 11:00 94 05/02/17 10:00 90 05/02/17 09:00 92 05/02/17 08:20 94 Venturi Mask 7.00 05/02/17 08:18 97.7 103 18 180/86 (117) 90 05/02/17 08:00 90 05/02/17 07:32 93 Venturi Mask 6.00 50 05/02/17 07:00 83 05/02/17 06:21 88 05/02/17 05:14 84 05/02/17 04:04 92 05/02/17 03:30 93 Venturi Mask 6.00 05/02/17 03:25 98.1 97 19 161/74 (103) 97 05/02/17 03:25 88 05/02/17 02:35 87 05/02/17 01:10 82 05/02/17 00:17 85 05/01/17 23:20 100 05/01/17 23:20 98.0 97 20 125/67 (86) 96 05/01/17 22:05 93 05/01/17 21:00 102 05/01/17 20:30 96 05/01/17 20:23 98 Partial Rebreather 12.00 05/01/17 19:30 101 05/01/17 19:30 98.4 94 21 154/85 (108) 94 05/01/17 19:30 94 Partial Non-Rebreather 15.00 05/01/17 18:00 100 05/01/17 17:00 100 05/01/17 16:00 94 05/01/17 15:30 98.7 94 20 141/67 (91) 96 05/01/17 15:00 93 05/01/17 14:25 93 Intake & Output 05/02/17 05/02/17 07:00 19:00 Intake Total 448 ml Output Total 300 ml Balance 148 ml Intake Oral 120 ml IV Total 328 ml Output Urine Total 300 ml Physical Exam CONSTITUTIONAL/GENERAL: This is an adequately nourished patient, in no apparent distress while at rest with O2 via mask. NECK: Trachea midline. Supple, nontender. No palpable thyroid enlargement or nodularity. CARDIOVASCULAR: Regular rate and rhythm without murmurs, gallops, or rubs. No JVD. Peripheral pulses symmetric. RESPIRATORY/CHEST: Symmetric, unlabored respirations while at rest. Scattered rales diffusely GASTROINTESTINAL: Abdomen soft, non-tender, nondistended. No hepato-splenomegaly , or palpable masses. No guarding. Bowel sounds present. GENITOURINARY: Without palpable bladder distension. Chavira catheter in place. MUSCULOSKELETAL: Extremities without clubbing, cyanosis, or edema. No joint tenderness or effusion noted. No calf tenderness. No mottling or clubbing. NEUROLOGICAL: Awake and alert. Motor and sensory grossly within normal limits. Follows commands. Cognitively sharp. Moves all extremities. PSYCHIATRIC: No obvious anxiety/depression. no apparent hallucinations or other psychotic thought process. . Diagnostic Tests Laboratory Laboratory Tests Test 04/30/17 22:20 04/30/17 22:55 05/01/17 03:35 05/01/17 05:15 White Blood Count 13.4 TH/MM3 (4.0-11.0) 10.6 TH/MM3 (4.0-11.0) Red Blood Count 6.01 MIL/MM3 (4.50-5.90) 5.46 MIL/MM3 (4.50-5.90) Hemoglobin 16.0 GM/DL (13.0-17.0) 14.7 GM/DL (13.0-17.0) Hematocrit 50.2 % (39.0-51.0) 45.8 % (39.0-51.0) Mean Corpuscular Volume 83.6 FL (80.0-100.0) 83.7 FL (80.0-100.0) Mean Corpuscular Hemoglobin 26.7 PG (27.0-34.0) 26.8 PG (27.0-34.0) Mean Corpuscular Hemoglobin Concent 31.9 % (32.0-36.0) 32.1 % (32.0-36.0) Red Cell Distribution Width 15.9 % (11.6-17.2) 15.6 % (11.6-17.2) Platelet Count 201 TH/MM3 (150-450) 181 TH/MM3 (150-450) Mean Platelet Volume 8.5 FL (7.0-11.0) 7.9 FL (7.0-11.0) Neutrophils (%) (Auto) 68.6 % (16.0-70.0) Lymphocytes (%) (Auto) 21.5 % (9.0-44.0) Monocytes (%) (Auto) 8.2 % (0.0-8.0) Eosinophils (%) (Auto) 1.4 % (0.0-4.0) Basophils (%) (Auto) 0.3 % (0.0-2.0) Neutrophils # (Auto) 9.2 TH/MM3 (1.8-7.7) Lymphocytes # (Auto) 2.9 TH/MM3 (1.0-4.8) Monocytes # (Auto) 1.1 TH/MM3 (0-0.9) Eosinophils # (Auto) 0.2 TH/MM3 (0-0.4) Basophils # (Auto) 0.0 TH/MM3 (0-0.2) CBC Comment DIFF FINAL Differential Comment Prothrombin Time 11.8 SEC (9.8-11.6) 12.3 SEC (9.8-11.6) Prothromb Time International Ratio 1.2 RATIO 1.2 RATIO Activated Partial Thromboplast Time 25.9 SEC (24.3-30.1) 76.2 SEC (24.3-30.1) Blood Urea Nitrogen 14 MG/DL (7-18) Creatinine 0.90 MG/DL (0.60-1.30) Random Glucose 143 MG/DL (74-106) Total Protein 6.5 GM/DL (6.4-8.2) Albumin 3.3 GM/DL (3.4-5.0) Calcium Level 8.2 MG/DL (8.5-10.1) Magnesium Level 1.8 MG/DL (1.5-2.5) Alkaline Phosphatase 110 U/L (45-117) Aspartate Amino Transf (AST/SGOT) 44 U/L (15-37) Alanine Aminotransferase (ALT/SGPT) 16 U/L (12-78) Total Bilirubin 0.6 MG/DL (0.2-1.0) Sodium Level 143 MEQ/L (136-145) Potassium Level 3.2 MEQ/L (3.5-5.1) Chloride Level 109 MEQ/L (98-107) Carbon Dioxide Level 25.5 MEQ/L (21.0-32.0) Anion Gap 9 MEQ/L (5-15) Estimat Glomerular Filtration Rate 80 ML/MIN (>89) Total Creatine Kinase 59 U/L (39-308) 56 U/L (39-308) Troponin I 0.28 NG/ML (0.02-0.05) 0.35 NG/ML (0.02-0.05) C-Reactive Protein 1.90 MG/DL (0.00-0.30) B-Type Natriuretic Peptide 561 PG/ML (0-100) Lipase 73 U/L (73-393) Erythrocyte Sedimentation Rate 1 mm/hr (0-20) Lactic Acid Level 2.0 mmol/L (0.4-2.0) Test 05/01/17 06:14 05/01/17 09:45 05/01/17 14:05 05/01/17 22:13 Blood Gas Puncture Site RT RADIAL Blood Gas Patient Temperature 98.6 Blood Gas HCO3 26 mmol/L (22-26) Blood Gas Base Excess 2.3 mmol/L (-2-2) Blood Gas Oxygen Saturation 87 % (90-100) Arterial Blood pH 7.42 (7.380-7.420) Arterial Blood Partial Pressure CO2 41 mmHg (38-42) Arterial Blood Partial Pressure O2 59 mmHg (61-120) Arterial Blood Oxygen Content 18.4 Vol % (12.0-20.0) Arterial Blood Carboxyhemoglobin 1.4 % (0-4) Arterial Blood Methemoglobin 1.1 % (0-2) Blood Gas Hemoglobin 15.1 G/DL (12.0-16.0) Oxygen Delivery Device VENTI MASK Blood Gas Inspired Oxygen 50 % Activated Partial Thromboplast Time 44.5 SEC (24.3-30.1) 38.3 SEC (24.3-30.1) 38.1 SEC (24.3-30.1) Troponin I 0.29 NG/ML (0.02-0.05) Test 05/02/17 04:21 White Blood Count 9.1 TH/MM3 (4.0-11.0) Red Blood Count 5.12 MIL/MM3 (4.50-5.90) Hemoglobin 13.8 GM/DL (13.0-17.0) Hematocrit 42.6 % (39.0-51.0) Mean Corpuscular Volume 83.2 FL (80.0-100.0) Mean Corpuscular Hemoglobin 26.9 PG (27.0-34.0) Mean Corpuscular Hemoglobin Concent 32.3 % (32.0-36.0) Red Cell Distribution Width 15.6 % (11.6-17.2) Platelet Count 174 TH/MM3 (150-450) Mean Platelet Volume 9.0 FL (7.0-11.0) Neutrophils (%) (Auto) 92.6 % (16.0-70.0) Lymphocytes (%) (Auto) 5.0 % (9.0-44.0) Monocytes (%) (Auto) 2.3 % (0.0-8.0) Eosinophils (%) (Auto) 0.0 % (0.0-4.0) Basophils (%) (Auto) 0.1 % (0.0-2.0) Neutrophils # (Auto) 8.5 TH/MM3 (1.8-7.7) Lymphocytes # (Auto) 0.5 TH/MM3 (1.0-4.8) Monocytes # (Auto) 0.2 TH/MM3 (0-0.9) Eosinophils # (Auto) 0.0 TH/MM3 (0-0.4) Basophils # (Auto) 0.0 TH/MM3 (0-0.2) CBC Comment DIFF FINAL Differential Comment Activated Partial Thromboplast Time 50.3 SEC (24.3-30.1) Blood Urea Nitrogen 14 MG/DL (7-18) Creatinine 0.75 MG/DL (0.60-1.30) Random Glucose 153 MG/DL (74-106) Calcium Level 8.6 MG/DL (8.5-10.1) Sodium Level 141 MEQ/L (136-145) Potassium Level 4.1 MEQ/L (3.5-5.1) Chloride Level 106 MEQ/L (98-107) Carbon Dioxide Level 27.2 MEQ/L (21.0-32.0) Anion Gap 8 MEQ/L (5-15) Estimat Glomerular Filtration Rate 99 ML/MIN (>89) B-Type Natriuretic Peptide 551 PG/ML (0-100) Result Diagram: 05/02/1742005/02/17420 Microbiology Microbiology Date/Time Source Procedure Growth Status 04/30/17 23:05 Blood Peripheral Aerobic Blood Culture - Preliminary NO GROWTH IN 2 DAYS Resulted 04/30/17 23:05 Blood Peripheral Anaerobic Blood Culture - Preliminary NO GROWTH IN 2 DAYS Resulted 04/30/17 22:50 Blood Peripheral Aerobic Blood Culture - Preliminary NO GROWTH IN 2 DAYS Resulted 04/30/17 22:50 Blood Peripheral Anaerobic Blood Culture - Preliminary NO GROWTH IN 2 DAYS Resulted 04/30/17 23:12 Nasal Aspirate Influenza Types A,B Antigen (SURAJ) - Final NEGATIVE FOR FLU A AND B ANTIGEN.... Complete Imaging Last Impressions Chest X-Ray 04/30/172225 Signed Impressions: Service Date/Time: Sunday, April 30, 2017 22:39 - CONCLUSION: Right lower lobe infiltrate. Cardiomegaly. Az Bhatia Jr., MD CT Angiography 04/30/172225 Signed Impressions: Service Date/Time: Monday, May 01, 2017 00:25 - CONCLUSION: 1. No pulmonary embolus. 2. Chronic diffuse interstitial disease. 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 Spiritual: Jew background but not spiritual or moravian in recent years. He does not desire a sailing officer were letterpress setter visit. Legal: The patient has capacity for decision-making. His spouse would be the HCP.. Ethical issues impacting care: None . Important Contacts Spouse: Ceferino Khan Home: . Prognosis The patient has been declining for several months, and he has significant underlying COPD, cardiac disease, and pulmonary fibrosis. He is appropriate for hospice services . Code Status: No Code Plan * DO NOT RESUSCITATE, per request of patient 05/01/17 * DECISION-MAKING: The patient has capacity for decision-making. His spouse will be the HCP. * GOALS: Transition to hospice today. * SYMPTOMS: Additional medication orders per hospice * Palliative Care will continue to follow the patient during this hospitalization. . Time Spent Total Floor Time (mins): 26 Face to Face Time (mins): 10 >50% Counseling/Coord of Care: Yes Attestation To help prompt me to consider important information that might be impacting today's encounter and assessment, information from prior notes written by myself or my colleagues may have been "brought forward" into today's note. My signature on this note, however, is an attestation that I personally performed the exam, history, and/or decision-making noted today, and, unless otherwise indicated, the interactions with patient, family, and staff as well as the review of records all occurred today. I also attest that the listed assessment and stated plan reflect my best clinical judgment today based on the combination of historical information, prior notes, and today's exam/ interactions. When time spent is documented, it refers only to time spent today by the signer, or if indicated, combined time spent today by collaborating physician/nurse practitioner. Mireya Velasquez MD May 02, 2017 14:26
== END 2017-05-02 18:45 | disposition hospice, inpatient (51) | DRG 193 ==
LOC: NEPC 22:12 → NEDA 05-01 01:19 → HCPC 05-01 03:36
PROVIDERS: ADMIT Hospitalist; ATTEND Hospitalist
DX: J18.9 Pneumonia, unspecified organism (principal); I21.A1 Myocardial infarction type 2; J96.91 Respiratory failure, unspecified with hypoxia; J44.0 Chronic obstructive pulmonary disease with (acute) lower respiratory infection; J44.1 Chronic obstructive pulmonary disease with (acute) exacerbation; I25.10 Atherosclerotic heart disease of native coronary artery without angina pectoris; I50.9 Heart failure, unspecified; I11.0 Hypertensive heart disease with heart failure; Z77.22 Contact with and (suspected) exposure to environmental tobacco smoke (acute) (chronic); G20 Parkinson's disease; E78.5 Hyperlipidemia, unspecified; J84.10 Pulmonary fibrosis, unspecified; G89.29 Other chronic pain; I65.29 Occlusion and stenosis of unspecified carotid artery; Z66 Do not resuscitate; I73.9 Peripheral vascular disease, unspecified; I48.91 Unspecified atrial fibrillation; R63.4 Abnormal weight loss; I25.2 Old myocardial infarction; Z88.0 Allergy status to penicillin; Z85.828 Personal history of other malignant neoplasm of skin; Z95.5 Presence of coronary angioplasty implant and graft; Z87.891 Personal history of nicotine dependence; Z86.711 Personal history of pulmonary embolism; Z95.1 Presence of aortocoronary bypass graft; Z86.79 Personal history of other diseases of the circulatory system; Z79.82 Long term (current) use of aspirin
CPT/HCPCS: 36600; 71045; 71275; 80048; 80053; 82550; 82805; 83605; 83690; 83735; 83880; 84484; 85025; 85027; 85610; 85652; 85730; 86140; 87040; 87804; 93005; 93306; 94640; 94664; 99285; J1644; J1956; J2920; Q9967